=== PATIENT | female | born 1955 | race Caucasian/White ===

== ENCOUNTER 2018-04-06 16:06 | Outpatient (REF) | payer BC, SELFPAY ==
[2018-04-06 22:37] LABS: TSH (W/Ref FT4) 0.44 uIU/mL (0.358-3.74)
== END 2018-04-06 16:26 ==
LOC: NCHCN 16:06
PROVIDERS: Visit Provider Nurse Practitioner
DX: E04.1 Nontoxic single thyroid nodule (principal); E03.9 Hypothyroidism, unspecified
CPT/HCPCS: 84443

== ENCOUNTER 2018-06-15 17:33 | Outpatient (REF) | payer BC, SELFPAY ==
[2018-06-15 22:30] LABS: TSH (W/Ref FT4) 0.54 uIU/mL (0.358-3.74)
== END 2018-06-15 17:53 ==
LOC: NCHCN 17:33
PROVIDERS: Visit Provider Nurse Practitioner
DX: E04.1 Nontoxic single thyroid nodule (principal); E03.9 Hypothyroidism, unspecified
CPT/HCPCS: 84443

== ENCOUNTER 2018-08-13 09:03 | Outpatient (CLI) | payer BC, SELFPAY ==
[2018-08-13 10:00] LABS: Abs Immature Grans 0.01 k/cumm (0.0-0.09); Absolute Basophil Count 0.02 k/cumm (0.0-0.2); Absolute Eosinophil Count 0.21 k/cumm (0.0-0.7); Absolute Lymphocyte Count 1.11 k/cumm (1.2-3.4); Absolute Monocyte Count 0.36 k/cumm (0.11-0.7); Absolute Neutrophil Count 3.86 k/cumm (1.2-6.7); Basophils % 0.4; Eosinophils % 3.8; HCT 46.7 % (36.0-46.0); HGB 14.9 g/dL (12.0-15.5); Immature Grans % 0.2; Lymphocytes % 19.9; Mean Corp. HGB Concentration 31.9 g/dL (32.0-36.0); Mean Corpuscular Hemoglobin 29.7 pg (27.0-33.0); Monocytes % 6.5; Neutrophils % 69.2; Platelet Count 202 x1000/uL (130-400); RBC 5.02 m/cumm (4.00-5.20); RBC Distribution Width 14.3 % (11.7-14.6); White Blood Cell Count 5.57 k/cumm (4.4-10.8)
[2018-08-13 12:00] LABS: ALT 30 U/L (12-78); AST 17 U/L (15-37); Albumin 4.3 g/dL (3.4-5.0); Alkaline Phosphatase 113 U/L (46-116); Anion Gap 11.6 mmol/L (3-11); BUN 20 mg/dL (7-18); Bilirubin, Total 0.5 mg/dL (0.2-1.0); CO2 28.4 mmol/L (21.0-32.0); CREATININE 0.96 mg/dL (0.55-1.02); Calcium 9.6 mg/dL (8.5-10.1); Chloride 104 mmol/L (98-107); Cholesterol 262 mg/dL (50-200); Estimated GFR 59.09 (mL/min/1.73m2); Glucose 74 mg/dL (70-100); HDL Cholesterol 74 mg/dL (40-60); LDL CHOLESTEROL 174 mg/dL (<100); Magnesium 2.2 mg/dL (1.8-2.4); Potassium 4.3 mmol/L (3.5-5.1); Sodium 144 mmol/L (136-145); TSH (W/Ref FT4) 3.06 uIU/mL (0.358-3.74); Total Protein 7.9 g/dL (6.4-8.2); Triglyceride 84 mg/dL (30-150)
[2018-08-15 12:21] LABS: Hepatitis C Ab w Rflx HCV PCR Negative (NEGAT)
== END 2018-08-13 09:23 ==
PROVIDERS: Visit Provider Nurse Practitioner
DX: E03.9 Hypothyroidism, unspecified (principal); Z00.00 Encounter for general adult medical examination without abnormal findings; R00.2 Palpitations; Z11.59 Encounter for screening for other viral diseases
CPT/HCPCS: 36415; 80053; 80061; 83721; 86803; 83735; 84443; 85025

== ENCOUNTER 2018-12-13 14:48 | Outpatient (CLI) | payer OTHER, BC, SELFPAY ==
--- NOTE | 2018-12-13 16:41 | DI.RAD_ITS ---
SYMPTOMS/DIAGNOSIS: BACK PAIN, M54.9 LUMBAR SPINE: There are no prior comparison exams. There are metallic rods extending from the thoracic region into the lower lumbar region and additional metallic rods seen extending from the mid lumbar level through the sacrum. Hardware also extends through the SI joints. No bony fracture or hardware fracture is seen. IMPRESSION: No acute abnormality.
== END 2018-12-13 15:08 ==
PROVIDERS: Visit Provider Specialist/Technologist Athletic Trainer
DX: M54.5 Low back pain (principal)
CPT/HCPCS: 72110

== ENCOUNTER 2019-09-14 13:30 | Outpatient (CLI) | payer BC, SELFPAY ==
[2019-09-14 14:43] LABS: FREE T4 1.15 ng/dL (0.76-1.46); TSH 10.33 uIU/mL (0.36-3.74)
[2019-09-14 21:56] LABS: T3,Free 3.3 pg/mL (2.8-5.3)
== END 2019-09-14 13:50 ==
PROVIDERS: PCP Nurse Practitioner Family; Visit Provider Nurse Practitioner Family
DX: Z00.00 Encounter for general adult medical examination without abnormal findings (principal); E03.9 Hypothyroidism, unspecified; K59.00 Constipation, unspecified; K30 Functional dyspepsia
CPT/HCPCS: 36415; 84439; 84443; 84481

== ENCOUNTER 2019-10-10 00:18 | Outpatient (CLI) | payer BC, SELFPAY ==
--- NOTE | 2019-10-10 13:20 | DI.MAMMO_ITS ---
EXAM: MG MAMMO SCREENING CLINICAL HISTORY: SCREENING, Z12.31 TECHNIQUE: Bilateral full field digital CC and MLO mammographic images were obtained with 3D tomosyn thesis and utilizing computer aided detection (CAD). COMPARISON: Available for comparison. FINDINGS: Masses/Architectural Distortion: None seen. Microcalcifications: No suspicious pleomorphic-type are seen. Skin Thickening/Nipple Retraction: None. IMPRESSION: 1. No significant interval change with no specific features of malignancy noted. 2. Unless there is more urgent need, screening mammography is recommended, as per [employer] guidelines. BI-RADS Cat 1 - Negative Breast Density - Category B - Scattered areas of fibroglandular density A negative radiographic report should not delay biopsy if a dominant or clinically suspicious mass is present. Up to ten percent of cancers are not identified on mammography. A negative report may reinforce clinical impression. Adenosis and dense breasts may obscure an underlying neoplasm. False positive reports average 6 to 10%. Patient will receive a letter notifying them of these results.
== END 2019-10-10 00:38 ==
PROVIDERS: PCP Nurse Practitioner Family; Visit Provider Nurse Practitioner Family
DX: Z12.31 Encounter for screening mammogram for malignant neoplasm of breast (principal)
CPT/HCPCS: 77063; 77067

== ENCOUNTER 2019-10-25 13:49 | Outpatient (CLI) | payer BC, SELFPAY ==
[2019-10-25 15:12] LABS: FREE T4 1.14 ng/dL (0.76-1.46)
== END 2019-10-25 14:09 ==
PROVIDERS: PCP Nurse Practitioner Family; Visit Provider Nurse Practitioner Family
DX: M25.551 Pain in right hip (principal); M54.9 Dorsalgia, unspecified; K59.00 Constipation, unspecified; E03.9 Hypothyroidism, unspecified; G25.81 Restless legs syndrome; G43.909 Migraine, unspecified, not intractable, without status migrainosus
CPT/HCPCS: 36415; 84439; 84443; 84481

== ENCOUNTER 2019-10-25 13:56 | Outpatient (CLI) | payer BC, SELFPAY ==
--- NOTE | 2019-10-25 13:51 | DI.RAD_ITS ---
EXAM: XR HIP AND PELVIS ADULT BL CLINICAL HISTORY: BILAT HIP PAIN, M25.551. TECHNIQUE: 2D digital imaging was performed. COMPARISON: No exams were available for comparison FINDINGS: BONES: No acute fracture is present. No bony destructive lesion is seen. Spinal rods and screws are s een in the lumbosacral spine. JOINTS: No dislocation present. No arthritic changes are seen in the hips. The sacroiliac joints are intact. The symphysis pubis is unremarkable. SOFT TISSUE: Normal. IMPRESSION: Unremarkable radiographs of bilateral hips. Postsurgical changes in the lumbosacral spine. DATA REPOSITORY: RADIATION DOSE DELIVERED:
== END 2019-10-25 14:16 ==
PROVIDERS: PCP Nurse Practitioner Family; Visit Provider Nurse Practitioner
DX: M25.551 Pain in right hip (principal); M25.552 Pain in left hip
CPT/HCPCS: 73521

== ENCOUNTER 2020-07-10 10:12 | Outpatient (CLI) | payer BC, SELFPAY ==
--- NOTE | 2020-07-10 15:00 | DI.RAD_ITS ---
EXAM: XR SHOULDER RT COMPLETE 2+V CLINICAL HISTORY: right shoulder pain. TECHNIQUE: 2D digital imaging was performed. COMPARISON: CR LEFT SHOULDER COMPLETE from 05/18/2013 FINDINGS: No evidence of fracture or dislocation. No abnormal soft tissue calcifications. Subacromial space i s not diminish. No obvious degenerative changes in the glenohumeral joint. No os acromiale. Bone d ensity normal. No osseous lesions. IMPRESSION: No significant radiographic findings on these two views of the right shoulder. DATA REPOSITORY: RADIATION DOSE DELIVERED:
--- NOTE | 2020-07-10 15:30 | DI.RAD_ITS ---
EXAM: XR WRIST RT COMPLETE CLINICAL HISTORY: right wrist pain TECHNIQUE: COMPARISON: No exams were available for comparison FINDINGS: Three views were obtained. There is narrowing of the cartilaginous joint space at the radial navicul ar joint. Otherwise the joint spaces appear intact and carpal alignment is grossly within normal head its. There are mild subchondral sclerotic changes at the radial navicular joint consistent with dege nerative change. There is a question of slight offset of the alignment of the navicular and lunate a t the radiocarpal articulation, question ligamentous injury at navicular lunate joint. If clinically indicated, additional evaluation with MR may be considered. IMPRESSION: RADIATION DOSE DELIVERED: Total DLP
== END 2020-07-10 10:32 ==
PROVIDERS: PCP Nurse Practitioner Family; Visit Provider Student in an Organized Health Care Education/Training Program
DX: M25.531 Pain in right wrist (principal); M25.511 Pain in right shoulder
CPT/HCPCS: 73030; 73110

== ENCOUNTER 2020-08-15 01:16 | Outpatient (CLI) | payer OTHER, BC, SELFPAY ==
--- NOTE | 2020-08-15 06:45 | DI.MRI_ITS ---
CLINICAL HISTORY: Failed cons; persistent pain mechanical symptOMS,SLAP LESION,BURSITIS,. TECHNIQUE: Multiplanar multisequence MRI was performed. COMPARISON: None FINDINGS: MR examination of the shoulder was performed according to the usual protocol. There is no significant effusion of the glenohumeral joint. Minimal fluid in the subacromial subdelt oid bursa. Bones and labrum: No significant bony signal abnormality seen apart from mild degenerative signal abn ormalities at the acromioclavicular joint associated with mild AC joint hypertrophy. Small inferior osteophyte of humeral head.. There is abnormal signal in the glenoid labrum anteriorly, superiorly, and posteriorly, consistent with a SLAP tear as clinically suspected. There is mildly abnormal signa l at the biceps attachment on the labrum. There is a longitudinal split of the biceps tendon noted i n the bicipital groove with mildly increased fluid in the bicipital groove.. Rotator cuff: Mildly abnormal signal noted in the supraspinatus tendon without evidence of discrete tear, consistent with tendinosis. Mildly abnormal signal seen in distal portion of subscapularis ten don, also consistent with tendinosis without evidence of a tear. Rotator interval structures are unremarkable with no evidence of a tear. Biceps tendon and anchor: See above, mildly abnormal signal in biceps anchor and longitudinal split b iceps tendon noted. IMPRESSION: Findings suggesting SLAP tear of the labrum. Longitudinal split of biceps tendon, no retraction seen. Mild rotator cuff tendinosis as described above. Mild degenerative changes of the acromioclavicular joint. DATA REPOSITORY:
== END 2020-08-15 01:36 ==
PROVIDERS: PCP Nurse Practitioner Family; Visit Provider Student in an Organized Health Care Education/Training Program
DX: M77.8 Other enthesopathies, not elsewhere classified (principal); M19.011 Primary osteoarthritis, right shoulder
CPT/HCPCS: 73221

== ENCOUNTER 2020-09-17 02:57 | Outpatient (CLI) | payer BC, SELFPAY ==
[2020-09-18 13:27] LABS: COVID-19 RT-PCR UVMMC Result Negative (Negative)
== END 2020-09-17 02:58 | disposition home or self-care (01) ==
LOC: LBO 02:57
PROVIDERS: PCP Nurse Practitioner Family; Visit Provider Student in an Organized Health Care Education/Training Program
DX: Z20.822 Contact with and (suspected) exposure to COVID-19 (principal); Z01.818 Encounter for other preprocedural examination
CPT/HCPCS: U0003

== ENCOUNTER 2020-09-24 13:06 | Outpatient (REF) | payer BC, SELFPAY ==
[2020-09-24 13:56] LABS: Calculated LDL 175 mg/dL (<100); Cholesterol 265 mg/dL (<200); HDL Cholesterol 62 mg/dL (40-60); TSH (W/Ref FT4) 1.26 uIU/mL (0.36-3.74); Triglyceride 143 mg/dL (<150)
== END 2020-09-24 13:07 | disposition home or self-care (01) ==
LOC: NCHCN 13:06
PROVIDERS: PCP Nurse Practitioner Family; Visit Provider Nurse Practitioner Family
DX: E03.9 Hypothyroidism, unspecified (principal)
CPT/HCPCS: 80061; 84443

== ENCOUNTER 2020-10-11 07:12 | Day surgery (SDC) | payer OTHER, SELFPAY ==
[2020-10-11] VITALS (7 sets, daily range): BP systolic 99–126; BP diastolic 57–79; PULSE 56–65; RESP 16–21; TEMP 36.1–36.6; O2SAT 95–99
[2020-10-11] MEDS: Lactated Ringers 1,000 ML 100 ML IV (08:12)
[2020-10-11] MEDS: ceFAZolin 2 GM/50 ML BAG IVPB (09:48)
[2020-10-11] MEDS: EPINEPHrine 30 MG/30 ML VIAL (10:59)
--- NOTE | 2020-10-11 12:06 | PDOC.DSDIS_ITS ---
Discharge Plan Disposition Patient Disposition: HOME Condition: Stable Discharge Details Reason For Visit: Right shoulder surgery Attending Provider: Jose Hernandez Primary Care Provider: Preeti Kidd Home Meds and New Rx's Prescriptions: New naproxen 250 mg tablet 250 - 500 mg PO BID PRN (Reason: Moderate pain or swelling) Qty: 60 RF: 0 aspirin 81 mg tablet,delayed release (DR/EC) 81 mg PO DAILY 14 Days Qty: 14 RF: 0 ondansetron 4 mg tablet,disintegrating 4 mg PO Q6H PRN (Reason: nausea or vomiting) Qty: 5 RF: 0 oxycodone 5 mg tablet 5 - 10 mg PO Q4H PRN (Reason: moderate to severe pain) Qty: 16 RF: 0 Continued levothyroxine 112 mcg capsule 112 mcg PO .QOD RF: 0 omega-3 fatty acids [Fish Oil Concentrate] 1,000 mg capsule 1,000 mg PO DAILY RF: 0 riboflavin (vitamin B2) 100 mg tablet 100 mg PO DAILY RF: 0 multivitamin Tablet 1 tab PO DAILY RF: 0 magnesium oxide 250 mg magnesium tablet 500 mg PO DAILY RF: 0 propranolol 10 mg tablet 10 mg PO BID Qty: 180 RF: 5 ketorolac 10 mg tablet 10 mg PO BID PRN (Reason: headache) Qty: 14 RF: 3 hydroxyzine HCl 25 mg tablet 25 mg PO QID PRN (Reason: headache ) Qty: 30 RF: 3 duloxetine [Cymbalta] 20 mg capsule,delayed release(DR/EC) 30 mg PO DAILY RF: 0 docusate sodium 100 mg Capsule PO RF: 0 Discharge Instructions Additional Instructions: Surgery: Shoulder arthroscopy with extensive debridement, biceps tenodesis, distal clavicle excision, and subacromial decompression. Activity: You should gradually increase range of motion motion and use of your shoulder. Please perform daily stretching exercises. You may use your shoulder for all regular activities. Avoid heavy lifting, reaching overhead, and lifting away from body for approximately 6 to 8 weeks. You may use the sling whenever you are out of the house for a few weeks. At home it is best to remove the sling and rest the arm on a pillow at your side or support the operative side with your other hand. A physical therapy prescription will be sent electronically to begin in 2-3 weeks. Prescriptions: Aspirin 81 mg take 1 daily to prevent a blood clot for 2 weeks Naproxen 250 mg take 1-2 every 12 hours with a meal as needed for moderate pain Oxycodone 5 mg take 1-2 every 4-6 hours as needed for severe pain You may use [id number] Tylenol (acetaminophen) as needed for mild pain. These pain medications may be taken all at once or in different combinations as needed. Ondansetron (Zofran) 4 mg take 1 orally dissolving tablet every 6 hours as needed for nausea or vomiting Also, recommend Colace (docusate) as a stool softener as surgery and pain medicine cause constipation. Dressings: Remove shoulder bandage after 3 days. Leave the sticky Steri-Strips in place until they fall off or remove them after you shower. Cover the incisions with Band-Aids or leave them open to air. The biceps bandage (inside upper arm) is glued on separately. You may leave this one on a few days longer if it is difficult to remove. There is also glue underneath this bandage that can be left in place until it peels off. You may shower after 5 days. Follow-up: 10-[address] Hernandez (10/23/20 at 8:15 AM) You may take off the leg compression stockings this evening at home. You may also leave them on a few days longer if you have a history of leg swelling or edema. Let us know right away if you develop any redness, drainage, fevers, chest pain, or trouble breathing. Do not drink alcohol or drive for at least 24 hours after anesthesia. Please call the office during business hours with any questions or concerns. Referrals: Jose Hernandez MD [ [facility] STAFF PHYSICIAN] - Discharge Orders Discharge Orders: Discharge Order (Routine); Ordered 10/11/20 Ordered By: Jose Hernandez DS: Diagnosis Discharge Diagnosis (1) Arthritis of right acromioclavicular joint: Status: Acute (2) Bursitis of right shoulder: Status: Acute (3) Tendinitis of long head of biceps brachii of right shoulder: Status: Acute (4) SLAP lesion of right shoulder: Status: Acute (5) Impingement syndrome of right shoulder: Status: Acute
--- NOTE | 2020-10-11 12:34 | ROE_ITS ---
Date of service: 10/11/20 Time of Service: 10:30 Operative Note Operative Note DATE OF PROCEDURE: 10/11/20 PRE-OP DIAGNOSIS: Right: 1. SLAP tear 2. LHB tendinopathy 3. Bursitis 4. Impingement 5. AC joint arthritis POST-OP DIAGNOSIS: same PROCEDURE: Right: 1. Arthroscopic distal clavicle excision, CPT# 58683. This involved arthroscopically exposing the underside of the acromioclavicular joint, smoothing out bone spurs, and using a aga to remove approximately 5 mm of the distal clavicle so there was no bone left engaging the acromion. 2. Open biceps tenodesis, CPT# 85220. This involved reattaching the long head of the biceps tendon to the proximal humerus in the sub-pectoral area of the bicipital groove at the correct tension. 3. Extensive debridement, CPT# 59905. This involved using arthroscopic hand instruments, power instruments, and radiofrequency instruments to release to release the long head of the biceps tendon and debride areas of labral tearing, SLAP tear, discoid type labrum, synovitis, and chondromalacia a anterior inferior glenoid labral chondral injury, and humeral head posteriorly working within the glenohumeral joint anteriorly, superiorly and posteriorly. 4. Subacromial decompression with partial acromioplasty, CPT# 90798. This involved using arthroscopic power instruments and a radiofrequency wand to complete a bursectomy and remove bone spurs on the undersurface of the acromion. The assistant professor of business was medically required in order to help assist in techniques above, which require positioning the arm, holding the arthroscope, and manipulating multiple instruments and sutures at the same time. This cannot be done without the help of an experienced assistant professor of business. SURGEON: Jose Hernandez PAPER FEEDER: Andie Knight ANESTHESIA TYPE: Local By Surgeon, General LMA/ETT and Primary Nerve Block Refer to Anesthesia Record ESTIMATED BLOOD LOSS: 10 PATHOLOGY: none sent COMPLICATIONS: None Patient was transported to: PACU Patient's condition: stable Implants: Arthrex: FiberTak 2.6 mm all-suture Button Implant Indications: The patient was diagnosed with the above conditions and appropriately indicated for surgical intervention. Please see complete medical record for details. Findings: Exam under anesthesia: Full, symmetrical range of motion without instability. Crepitation at glenohumeral joint with circumduction. Glenohumeral joint: Significant displaced bucket-handle likely discoid type SLAP tear with extension into the posterior labrum. Intact subscapularis. Intact articular sided supraspinatus infraspinatus. Anterior inferior labral tear and adjacent chondromalacia somewhat chronic appearing with cartilage and small amount of bone loss anterior inferior glenoid. Anterior about bicipital groove and posterior humeral head cartilage softening and thinning. Subacromial space: Moderate bursitis. Moderate impinging undersurface distal clavicle acromion. Mild undersurface acromial bone spur. Intact bursal rotator cuff. Procedure Description: In the operating room, general anesthesia was induced. Bilateral shoulders were examined. The patient was positioned in the beachchair position. All bony prominences were well-padded. Preoperative antibiotics were administered. The shoulder was prepped and draped in the usual sterile fashion. The correct patient, procedure, and side of the procedure were all verified prior to incision. Starting through the posterior portal a standard complete diagnostic arthroscopy was performed of the glenohumeral joint including inspection of the long head of the biceps, anterior and superior labrum, subscapularis tendon, supraspinatus and infraspinatus tendons, and axillary recess. The glenoid and humeral head cartilage as well as the posterior labrum were inspected from an anterior viewing portal. Significant findings and interventions noted above. The biceps tendon was released from the superior labrum using arthroscopic scissors. Starting through the posterior portal, the arthroscope was directed into the subacromial space. A lateral 50 yard line lateral portal was created. A combination of power instruments and a radiofrequency ablator were used to debride bursitis anteriorly, posteriorly, and laterally as well as expose and smooth bone spurring on the undersurface of the acromion. The coracoacromial ligament was only partially released. The bursectomy was completed viewing laterally and working from posteriorly and the rotator cuff was thoroughly inspected with findings noted above. The anterior portal was redirected towards the undersurface of the AC joint. A shaver and electrocautery device were used to clear soft tissue from the undersurface of the AC joint. A aga was then inserted and used to remove the distalmost 5 mm of the distal clavicle. Care was taken to alternate between working through the anterior portal and viewing through the anterior portal to ensure that proper amount of bone was removed and there was no engaging bone left behind especially superiorly. 20 cc of 1% epinephrine with epinephrine was infiltrated about a 3 cm longitudinal incision at the inferior margin of the pectoralis major localized over the long head of the biceps tendon. Blunt and sharp dissection were used to expose the tendon in the bicipital groove. The tendon was brought out of the wound and kept off the skin on top of a blue towel. Using a fiber loop suture the tendon was prepped from the musculotendinous junction a few centimeters proximal. The excess tendon was amputated. The correct location for sub- pectoral fixation was localized, prepped with a rasp, and then drilled with a 2.6 mm drill pin in a unicortical fashion through the guide. The FiberTak button implant was inserted through the guide, deployed, and tested. The free FiberLoop suture ends were then passed through the implant using the preloaded FiberLoop shuttling sutures. The sutures were tensioned bringing the tendon down to bone. Tension and fixation were then tested and found to be appropriate. The free ends of the suture were were brought on either side of the tendon and then tied compressing tendon to bone. The wound was copiously irrigated with normal saline. Subcutaneous tissue was closed using 3-0 Monocryl in a buried interrupted fashion. Skin was closed using 3-0 Monocryl in a buried subcuticular running fashion. Skin glue was applied over the incision. Mastisol was applied about the incision. The incision was covered with Telfa, gauze, and covered with a Tegaderm dressing. The shoulder was drained of arthroscopic fluid. All portal sites were copiously irrigated. These incisions were closed using 3-0 Monocryl in a buried fashion, covered with Mastisol, Steri-Strips, Xeroform, dry gauze, and ABDs. The dress ings were covered and secured with Medipore tape. The operative extremity was placed into a sling for immobilization. The patient awoke from anesthesia without complication and was transferred to the recovery room in a stable condition.
== END 2020-10-11 14:01 | disposition home or self-care (01) ==
PROVIDERS: PCP Nurse Practitioner Family; Visit Provider Student in an Organized Health Care Education/Training Program
PROC: (CPT 29805; principal; 2020-10-11 09:30)
DX: M19.011 Primary osteoarthritis, right shoulder (principal); M75.51 Bursitis of right shoulder; M75.21 Bicipital tendinitis, right shoulder; M75.41 Impingement syndrome of right shoulder; S43.431A Superior glenoid labrum lesion of right shoulder, initial encounter; E03.9 Hypothyroidism, unspecified; K21.9 Gastro-esophageal reflux disease without esophagitis
CPT/HCPCS: 23430; 29824; 29823; 29826; 76942; J0690; J1100; J1885; J2001; J2250; J2370; J2405

== ENCOUNTER 2021-02-25 13:00 | Outpatient (REF) | payer BC, SELFPAY ==
--- NOTE | 2021-02-25 12:00 | PAPFT_PTH ---
PATIENT: Camelia Vazquez LOC: [facility]#:[id number] AGE/SX: 65/F ROOM: RE02/25/[address]: Preeti Kidd : 1955 BED: DIS: 02/25/2021 SPEC #: [id number] RECD: 02/26/21 12:55 STATUS: DAWNA REDang #: [id number] QUAN: 02/25/21 12:[address]: Preeti Kidd DEPT: [facility] Cytology RECD BY: Camelia Zhu Tissues: 1 - CX/ENDOCX FOR PAP SMEARS Procedures: PAP THIN PREP/UVM Screening HPV DNA PROBE Comments: [id number]
== END 2021-02-25 13:01 | disposition home or self-care (01) ==
LOC: NCHCN 13:00
PROVIDERS: PCP Nurse Practitioner Family; Visit Provider Nurse Practitioner Family
DX: Z00.00 Encounter for general adult medical examination without abnormal findings (principal); Z12.4 Encounter for screening for malignant neoplasm of cervix; Z01.419 Encounter for gynecological examination (general) (routine) without abnormal findings; Z11.51 Encounter for screening for human papillomavirus (HPV)
CPT/HCPCS: 88142; 87624

== ENCOUNTER 2021-03-19 14:33 | Outpatient (CLI) | payer BC, SELFPAY ==
--- NOTE | 2021-03-19 11:00 | DI.RAD_ITS ---
Exam(s) XR ANKLE RT COMPLETE EXAM: XR ANKLE RT COMPLETE CLINICAL HISTORY: acute injury. TECHNIQUE: 2D digital imaging was performed. COMPARISON: No exams were available for comparison FINDINGS: There is soft tissue swelling laterally but no evidence of fracture nor widening of the mortise. Lawrence ar dome appears unremarkable. No osseous tarsal coalition evident. IMPRESSION: Soft tissue swelling. No obvious fracture. DATA REPOSITORY: RADIATION DOSE DELIVERED:
== END 2021-03-19 14:34 | disposition home or self-care (01) ==
LOC: DIORS 14:33
PROVIDERS: PCP Nurse Practitioner Family; Visit Provider Physician Assistant Surgical
DX: S93.401A Sprain of unspecified ligament of right ankle, initial encounter (principal); X50.1XXA Overexertion from prolonged static or awkward postures, initial encounter; Y99.8 Other external cause status
CPT/HCPCS: 73610

== ENCOUNTER 2021-09-08 12:58 | Outpatient (REF) | payer BC, SELFPAY ==
[2021-09-08 16:32] LABS: TSH (W/Ref FT4) 0.99 uIU/mL (0.36-3.74)
== END 2021-09-08 12:59 | disposition home or self-care (01) ==
LOC: NCHCN 12:58
PROVIDERS: PCP Nurse Practitioner Family; Visit Provider Nurse Practitioner Family
DX: Z01.818 Encounter for other preprocedural examination (principal)
CPT/HCPCS: 84443

== ENCOUNTER 2021-11-05 00:56 | Outpatient (CLI) | payer BC, SELFPAY ==
--- NOTE | 2021-11-05 07:55 | DI.MAMMO_ITS ---
Exam(s) MAMMO SCREENING EXAM: MAMMO SCREENING CLINICAL HISTORY: SCREENING, Z12.31. TECHNIQUE: Bilateral full field digital CC and MLO mammographic images were obtained with 3D tomosyn thesis and utilizing computer aided detection (CAD). COMPARISON: Prior mammograms were reviewed, the most recent being October 2019. FINDINGS: There has been no significant change in the appearance and distribution of the fibroglandular tissue. There are no new spiculated masses nor malignant appearing microcalcification groups. There is no significant architectural distortion nor skin thickening-retraction. IMPRESSION: No radiographic evidence of malignancy. Category: Density: Breast density Category C or D implies that the patient has dense breast tissue. Dense breast tissue can make it harder to find cancer on a mammogram. Dense breast tissue is also associated with an incr eased risk of breast cancer. This information about the result of the mammogram report was provided to the patient to raise their awareness. Use this report when you speak with the patient about their risks for breast cancer, which includes their family history. At that time, you may recommend additional screening tests (Ultrasoun d or MRI) as these tests may add significant information. A negative radiographic report should not delay biopsy if a dominant or clinically suspicious mass is present. Up to ten percent of cancers are not identified on mammography. A negative report may reinforce clinical impression. Adenosis and dense breasts may obscure an underlying neoplasm. False positive reports average 6 to 10%. Patient will receive a letter notifying them of these results.
== END 2021-11-05 01:16 ==
PROVIDERS: PCP Nurse Practitioner Family; Visit Provider Nurse Practitioner Family
DX: Z12.31 Encounter for screening mammogram for malignant neoplasm of breast (principal)
CPT/HCPCS: 77063; 77067

== ENCOUNTER 2022-02-05 19:58 | Outpatient (REF) | payer BC, SELFPAY | END 2022-02-05 19:59 | disposition home or self-care (01) | LOC: NCHCN 19:58 | PROVIDERS: PCP Nurse Practitioner Family; Visit Provider Family Medicine ==

== ENCOUNTER 2022-02-10 12:32 | Outpatient (CLI) | payer BC, SELFPAY ==
[2022-02-10 13:01] LABS: HCT 43.3 % (36.0-46.0); MCHC 32.3 % (32.0-36.0); MCV 96 fL (80-95); MPV 10.3 fL (8.0-11.0); Platelet Count 227 10^3/uL (130-400); RBC 4.51 10^6/uL (3.93-5.22); RDW 13.5 % (11.7-14.6); RDW-SD 48.3 fL; WBC 5.88 10^3/uL (4.4-10.8)
[2022-02-10 14:21] LABS: ALT 28 U/L (14-59); AST 19 U/L (15-37); Albumin 4.1 g/dL (3.4-5.0); Alkaline Phosphatase 98 U/L (46-116); BUN 21 mg/dL (7-18); Bilirubin, Total 0.3 mg/dL (0.2-1.0); CREATININE 0.9 mg/dL (0.55-1.02); Calcium 8.9 mg/dL (8.5-10.1); Chloride 103 mmol/L (98-107); Glucose 94 mg/dL (74-106); Magnesium 2.3 mg/dL (1.8-2.4); Potassium 4.1 mmol/L (3.5-5.1); Sodium 143 mmol/L (136-145); Total Protein 7.7 g/dL (6.4-8.2); Vitamin B12 1147 pg/mL (193-986)
[2022-02-11 22:44] LABS: Folate 13.8 ng/mL (See Note)
[2022-02-12 05:22] LABS: Vitamin D 25 Total 22.6 ng/mL (30-100)
[2022-02-16 13:46] LABS: IgA 192 mg/dL (85-499); Interpretation (See Note); Tissue Transglutaminase IgA <1.2 U/mL (<4.0)
== END 2022-02-10 12:33 | disposition home or self-care (01) ==
LOC: LBO 12:33
PROVIDERS: PCP Nurse Practitioner Family; Visit Provider Family Medicine
DX: K30 Functional dyspepsia (principal); G43.909 Migraine, unspecified, not intractable, without status migrainosus; K59.09 Other constipation; E66.9 Obesity, unspecified
CPT/HCPCS: 36415; 80053; 82306; 82784; 83516; 85027; 82607; 82746; 83735

== ENCOUNTER 2022-06-02 14:57 | Outpatient (REF) | payer BC, SELFPAY ==
[2022-06-02 16:09] LABS: TSH 1.33 uIU/mL (0.36-3.74)
== END 2022-06-02 14:58 | disposition home or self-care (01) ==
LOC: NCHCN 14:57
PROVIDERS: PCP Nurse Practitioner Family; Visit Provider Nurse Practitioner Family
DX: E03.9 Hypothyroidism, unspecified (principal)
CPT/HCPCS: 84443

== ENCOUNTER 2022-07-03 02:45 | Outpatient (CLI) | payer MEDICARE, SELFPAY ==
[2022-07-06 10:08] LABS: Lyme Ab w Rflx to Lyme Confirm Negative (Negative)
[2022-07-06 20:11] LABS: Anaplasma phagocytophilum Negative (Negative); B. miyamotoi PCR Negative (Negative); Babesia divergens/MO-1 Negative (Negative); Babesia duncani Negative (Negative); Babesia microti Negative (Negative); Ehrlichia chaffeensis Negative (Negative); Ehrlichia ewingii/canis Negative (Negative); Ehrlichia muris eauclairensis Negative (Negative)
== END 2022-07-03 02:46 | disposition home or self-care (01) ==
PROVIDERS: PCP Nurse Practitioner Family; Visit Provider Psychiatry & Neurology Neurology
DX: R51.9 Headache, unspecified (principal); G89.29 Other chronic pain
CPT/HCPCS: 36415; 87798; 86618

== ENCOUNTER 2022-07-13 08:15 | Day surgery (SDC) | payer MEDICARE, SELFPAY ==
[2022-07-13] VITALS (9 sets, daily range): BP systolic 102–148; BP diastolic 60–88; PULSE 54–71; RESP 12–18; TEMP 36.1–36.7; O2SAT 18–100; BMI 32.0
--- NOTE | 2022-07-13 07:08 | W.ANESPRE ---
General Info Date of Service Date Performed: 07/13/22 Height: 5 ft 5 in Weight: 87.2 kg Body Mass Index (BMI): 32.0 Surgical Procedure: Operation Date: 07/13/22 09:35 Proposed Procedure Side Surgeon p Maximus Sellers MD Meds Allergies and Home Medications Allergies Allergy/AdvReac Type Severity Reaction Status Date / Time amitriptyline Allergy Mild Unknown Verified 07/13/22 08:28 Sulfa (Sulfonamide AdvReac Intermediate blood Verified 07/13/22 08:28 Antibiotics) pressure, oxygen levels down gabapentin AdvReac Mild constipatio Verified 07/13/22 08:28 n Home Medication Medication Instructions Recorded docusate sodium 100 mg capsule PO PRN 04/16/21 hydroxyzine HCl 25 mg tablet 25 mg PO QID PRN headache #30 tabs 09/17/21 mecobalamin (vitamin B12) 1,000 1,000 mcg PO DAILY 09/17/21 mcg chewable tablet trazodone 50 mg tablet 50 mg PO QHS PRN 09/17/21 galcanezumab-gnlm 120 mg/mL 120 mg subcut ONCE #1 mL 12/30/21 subcutaneous pen injector (Emgality Pen) propranolol 40 mg tablet 40 mg PO BID #180 tabs 02/03/22 B.coagulans 2 billion 1 cap PO DAILY 03/17/22 cell-digestive enzymes combo no.10 capsule (Digestive Advantage Probiotics Plus Gas) ascorbate calcium (vitamin C) 500 500 mg PO DAILY PRN 03/17/22 mg tablet coenzyme Q10 75 mg capsule (Ultra 200 mg PO DAILY 03/17/22 CoQ10) duloxetine 20 mg capsule,delayed 20 mg PO DAILY 03/17/22 release magnesium oxide 400 mg PO BID 03/17/22 melatonin 3 mg capsule 3 mg PO HS 03/17/22 omega-3 fatty acids 1,000 mg 2,000 mg PO DAILY 03/17/22 capsule (Fish Oil Concentrate) riboflavin (vitamin B2) 100 mg 200 mg PO DAILY 03/17/22 tablet tumeric 100 mg-darcie 150 mg-olive cap PO BID 03/17/22 50 mg-oreg 150 mg-caprylate capsule ashwagandha root extract 500 mg 500 mg PO DAILY 03/18/22 capsule cholecalciferol (vitamin D3) 125 125 mcg PO DAILY 06/02/22 mcg (5,000 unit) capsule levothyroxine 125 mcg tablet 125 mcg PO DAILY 06/02/22 colchicine 0.6 mg capsule 0.6 mg PO DAILY PRN 06/16/22 ketorolac 10 mg tablet 10 mg PO BID PRN headache #14 tabs 06/16/22 rimegepant 75 mg disintegrating 75 mg PO Q OTHER DAY migraine 06/16/22 tablet (Nurtec ODT) headache #15 tabs bisacodyl 5 mg tablet,delayed 5 mg PO ONCE #4 tabs 07/02/22 release (Dulcolax (bisacodyl)) polyethylene glycol 3350 17 17 g PO ONCE #238 grams 07/02/22 gram/dose oral powder Current Visit Medications: Current Medications Generic Name Dose Route Start Last Admin Trade Name Freq PRN Reason Stop Dose Admin Ringer's Solution 1,000 mls @ 80 mls/hr 07/13/22 06:00 IV 07/13/22 23:59 INFUSION JARVIS IV Miscellaneous Supplies 1 each 07/13/22 06:00 Iv Access IV 07/13/22 23:59 DIRECTED JARVIS Sodium Chloride 0 ml 07/13/22 06:00 Normal Saline Flush 10 Ml Syr IV 07/13/22 23:59 PRN PRN Sodium Chloride 0 ml 07/13/22 06:00 Normal Saline 10 Ml Vial IJ 07/13/22 23:59 DIRECTED PRN Sterile Water 0 ml 07/13/22 06:00 Water,Injection,Sterile 10 Ml Vial IJ 07/13/22 23:59 DIRECTED PRN PFSH Active Problems Active Problems: Problem Status Onset Code Chronic pain syndrome G89.4 Persistent headaches R51.9 Screening for colon cancer Z12.11 Sensorineural hearing loss (SNHL) of both ears H90.3 Chronic daily headache R51.9 Caregiver burden Z63.6 Medical History Medical History Arthritis of right acromioclavicular joint Back pain Bursitis of right shoulder Constipation Hypothyroidism Iliotibial band syndrome of left side Impingement syndrome of right shoulder Migraine aura, persistent, intractable Migraine headache without aura Radioscaphoid impaction syndrome of right wrist Right ankle sprain (03/19/21) Scoliosis SLAP lesion of right shoulder Stress incontinence Tendinitis of long head of biceps brachii of right shoulder Thyroid nodule Trochanteric bursitis of left hip Tubular adenoma of colon (02/09/17) Surgical History Surgical History Arthroplasty of knee left this is NOT a TKA per patient back surgery Rods from T4-S1 for scoliosis bunionectomy Rt. Foot Colonoscopy - MAC (02/09/17) excision ganglion cyst H/O partial thyroidectomy H/O shoulder surgery History of surgery SLAP right wrist History of surgery on wrist [place] [facility] [place] Spinal Fusion LS wisdom teeth extraction Tobacco Smoking/Tobacco Use Status: Never Alcohol Alcohol Intake: never Substance Use Substance use: Never Substance use type: does not use Vital Signs and Lab Results Lab Results Blood Type / Crossmatch: No Data to Display Complete Blood Count: No Data to Display Complete Metabolic Panel: No Data to Display Liver Function Panel: No Data to Display Coagulation Panel: No Data to Display Cardiac Panel: No Data to Display Arterial Blood Gas: No Data to Display Venous Blood Gas: No Data to Display Pancreas Panel: No Data to Display Thyroid Panel: No Data to Display Infectious Disease: No Data to Display Blood Cultures: No Data to Display Toxicology Panel: No Data to Display Anesthesia Assessment and Plan Anesthesia History Personal History: No History of Anesthesia Complications Family History: No Family History of Anesthesia Complications Exercise Tolerance Exercise Tolerance: Metabolic Equivalents>4 Pertinent Negatives Pertinent Negatives: No Symptoms of GERD, No Major Cardiovascular Symptoms or Complaints, No Major Pulmonary Symptoms or Complaints and No History of CVA/TIA Cardiac & Pulmonary Exam Cardiac Exam: Normal S1/S2 Heart Sounds Pulmonary Exam: Clear Bilateral Breath Sounds Implantable Cardiac Device Does patient have a Pacemaker or an ICD?: No Airway Exam Known Difficult Airway: No Mallampati Class: 2 Mouth Opening: Normal (> 3cm) Thyromental Distance: Greater than 3 cm Neck Range of Motion: Full ROM Neck Circumference: Normal Teeth Condition: Normal Dentition ASA Classification ASA Score: ASA 3 Emergency Case?: No NPO Status NPO Status: NPO Clears >2 hours, Solids >8 hours Anesthesia Plan Resuscitation Status: Full Code Anesthesia Technique: General Anesthesia Airway Planned: Natural Airway Monitors Used: Standard Monitors
[2022-07-13] MEDS: Lactated Ringers 1,000 ML 80 ML IV (09:22)
--- NOTE | 2022-07-13 09:40 | BOWEL_PTH ---
PATIENT: Camelia Vazquez LOC: [facility] U#:[id number] AGE/SX: 66/F ROOM: RE07/13/[address]: Ash Sellers : 1955 BED: DIS: 07/13/2022 SPEC #: [id number] RECD: 07/13/22 12:26 STATUS: DAWNA RE #: [id number] QUAN: 07/13/22 09:[address]: Ash Sellers DEPT: Surgical Specimen RECD BY: Camelia Zhu ENTERED: 07/13/22 12:26 SP TYPE: Bowel OTHR DR: Preeti Kidd Tissues: 1 - BIOPSY BOWEL Procedures: GROSS AND MICRO LEVEL 4 Comments: [id number]
--- NOTE | 2022-07-13 09:55 | W.PM.ENDDOP ---
Date of service: 07/13/22 Time of Service: 09:55 Endoscopy Report PROCEDURE DESCRIPTION: Procedures performed: 1. Colonoscopy with snare polypectomy x1 Preoperative diagnosis: Surveillance colonoscopy Postoperative diagnosis: Colon polyps, mild sigmoid diverticulosis, mild grade 1 internal hemorrhoids Surgeon: Rolf Sellers Anesthesia: Luis Indication for procedure: Patient is a 66-year-old woman with personal history of adenomatous polyps, her grandmother had colon cancer, she is not having any symptoms. Last colonoscopy 5-6 years ago. Findings: A 3 to 5 mm sessile polyp was removed from the cecum with cold snare technique. Minimal/mild diverticular changes only in the sigmoid colon. Mild grade 1 internal hemorrhoids were noted on retroflexion. Surveillance/follow-up recommendations: Because of the personal, family histories and finding a right?sided adenomatous polyp today I recommend repeating in 3-5 years depending on histology. If adenomatous in 5 years, if villous or sessile serrated histology then 3 years. Complications: None Blood loss: Minimal Procedure in detail: Written consent was obtained from the patient who was in agreement with the risks, benefits and indications of the procedure. We went to the endoscopy suite and laid the patient in left lateral decubitus position. Anesthesia was administered which was tolerated well. A timeout was performed and when we are all in agreement we began the procedure. Digital rectal exam and visual examination was performed and within normal limits. A well?lubricated colonoscope was advanced without difficulty all the way to the cecum identified by the ileocecal valve, and triangular folds and appendiceal orifice. It was then slowly withdrawn. Retroflexion was performed in the rectum. The findings/interventions are noted above. The scope was then removed and the patient tolerated the procedure well and was then taken back to the PACU in hemodynamically stable condition.
[2022-07-13] MEDS: Ketorolac 15 MG/ML VIAL IVP (10:23)
--- NOTE | 2022-07-13 10:43 | ANES.POST_ITS ---
Postoperative Evaluation Date, Time and Location Date Performed: 07/13/22 Time Performed: 10:24 Patient Location: PACU Vital Signs Most Recent Imported Vital Signs: Most Recent Vital Signs Temp Pulse Resp BP Pulse Ox 36.6 C 54 L 15 122/61 98 07/13/22 10:35 07/13/22 10:35 07/13/22 10:35 07/13/22 10:35 07/13/22 10:35 Pain Score Most Recent Pain Score: Most Recent Pain Score Pain Level 4 07/13/22 10:35 Assessment Mental Status: Awake (Alert & Oriented to Patient Baseline) Airway and Respiratory Function: Patent airway with normal (patient baseline) respiratory exam Cardiovascular Function: Hemodynamically Stable Hydration Status: Adequately Hydrated Nausea & Vomiting: No Nausea or Vomiting Pain: Pain is tolerable per patient Peripheral Nerve Block: Patient did not receive a nerve block Teaching Patient Teaching: Advised to seek followup for the following concerns (See exp lanation) Concerns: Other (Possible Aspiration event during case. Sent home with aspiration pneumonia discharge instructions. All questions answered.) Postoperative Comments:: patient left eye irritated. i ordered and administered two drops of adtificial tears. patient states uses at home and is comfortable in the medication and its usage
== END 2022-07-13 11:33 | disposition home or self-care (01) ==
PROVIDERS: PCP Nurse Practitioner Family; Visit Provider Student in an Organized Health Care Education/Training Program
PROC: 0DJD8ZZ Inspection of Lower Intestinal Tract, Via Natural or Artificial Opening Endoscopic (ICD-10-PCS; CPT 45378; principal; 2022-07-13 09:30)
DX: Z12.11 Encounter for screening for malignant neoplasm of colon (principal); K63.5 Polyp of colon; K57.30 Diverticulosis of large intestine without perforation or abscess without bleeding; K64.0 First degree hemorrhoids; Z86.010 Personal history of colon polyps
CPT/HCPCS: 45385; 88305; J1885

== ENCOUNTER 2022-08-25 08:59 | Outpatient (CLI) | payer MEDICARE, SELFPAY ==
--- NOTE | 2022-08-25 | DI.RAD_ITS ---
Exam(s) XR ELBOW LT COMPLETE EXAM: XR ELBOW LT COMPLETE CLINICAL HISTORY: LEFT LATERAL EPICONDYLITIS M77.12. TECHNIQUE: 2D digital imaging was performed. COMPARISON: CR LEFT ELBOW COMPLETE from 05/18/2013 FINDINGS: 3 views No evidence of fracture or joint effusion and there is no swelling of the olecranon bursa. Radial he ad and neck are unremarkable. No degenerative changes. Epicondyles unremarkable. No loose bodies. IMPRESSION: No significant osseous findings in the elbow. DATA REPOSITORY: RADIATION DOSE DELIVERED:
== END 2022-08-25 09:19 ==
PROVIDERS: PCP Nurse Practitioner Family; Visit Provider Orthopaedic Surgery
DX: M25.522 Pain in left elbow (principal); M77.12 Lateral epicondylitis, left elbow
CPT/HCPCS: 73080

== ENCOUNTER 2022-11-17 15:22 | Outpatient (REF) | payer MEDICARE, SELFPAY ==
[2022-11-17 14:58] LABS: TSH (W/Ref FT4) 1.14 uIU/mL (0.36-3.74)
== END 2022-11-17 15:23 | disposition home or self-care (01) ==
LOC: NCHCN 15:22
PROVIDERS: PCP Nurse Practitioner Family; Visit Provider Nurse Practitioner Family
DX: R00.2 Palpitations (principal); E78.5 Hyperlipidemia, unspecified; E03.9 Hypothyroidism, unspecified; E55.9 Vitamin D deficiency, unspecified
CPT/HCPCS: 84443

== ENCOUNTER → 2022-12-24 10:26 | Outpatient (BNVA) | payer MEDICARE, SELFPAY | PROVIDERS: PCP Nurse Practitioner Family; Referring Provider Nurse Practitioner Family; Visit Provider Nurse Practitioner Adult Health | DX: G43.019 Migraine without aura, intractable, without status migrainosus (principal); G47.00 Insomnia, unspecified; F39 Unspecified mood [affective] disorder; G89.29 Other chronic pain | CPT/HCPCS: 99214 ==

== ENCOUNTER 2023-01-25 13:38 | Outpatient (REF) | payer MEDICARE, SELFPAY ==
[2023-01-25 17:43] LABS: Anion Gap 9.7 mmol/L (3-11); BUN 20 mg/dL (7-18); CO2 29.3 mmol/L (21.0-32.0); CREATININE 0.7 mg/dL (0.55-1.02); Calcium 9.9 mg/dL (8.5-10.1); Chloride 102 mmol/L (98-107); Estimated GFR 95.92 (mL/min/1.73m2); Glucose 93 mg/dL (74-106); Magnesium 2.2 mg/dL (1.8-2.4); Potassium 4.5 mmol/L (3.5-5.1); Sodium 141 mmol/L (136-145)
== END 2023-01-25 13:39 | disposition home or self-care (01) ==
LOC: NCHCN 13:38
PROVIDERS: PCP Nurse Practitioner Family; Visit Provider Nurse Practitioner Family
DX: R07.89 Other chest pain (principal); R00.2 Palpitations; E55.9 Vitamin D deficiency, unspecified; R19.8 Other specified symptoms and signs involving the digestive system and abdomen; E78.5 Hyperlipidemia, unspecified; M54.9 Dorsalgia, unspecified; K30 Functional dyspepsia; G43.909 Migraine, unspecified, not intractable, without status migrainosus; Z78.0 Asymptomatic menopausal state
CPT/HCPCS: 80048; 83735; 84443

== ENCOUNTER → 2023-01-28 10:08 | Outpatient (BNVA) | payer MEDICARE, SELFPAY | PROVIDERS: PCP Nurse Practitioner Family; Referring Provider Nurse Practitioner Family; Visit Provider Physical Therapy Assistant | DX: K21.9 Gastro-esophageal reflux disease without esophagitis (principal) | CPT/HCPCS: 99213 ==

== ENCOUNTER 2023-02-01 00:37 | Outpatient (CLI) | payer MEDICARE, SELFPAY ==
--- NOTE | 2023-02-01 09:00 | ETT_ITS ---
APPROVED REPORT Exam: Exercise Treadmill Patient Location: Out-Patient Room/Bed: Stress Nurse: Ange Vides RN Ordering Provider:JAI GAFFENY, Contact Number: BMI: 32.44 Baseline Rhythm: Sinus Rhythm Indications: Chest discomfort, palpitations. Medical History Medical History: Hyperlipidemia,hypothyroidism, Chronic pain. Cardiac Medications: Magnesium, Ashwagandha, Boswella, Tumeric, Allergies: Sulfa, Amitriyline, gabapentin. Cardiac Risk Factors: Hyperlipidemia, Obesity Previous Cardiac Procedures: none Pretest Chest Pain Characteristics: No chest pain Exercise History: Sedentary Physical Disabilities: none Lung Sounds: clear Heart Sounds: regular Stress Test Details Test: Exercise stress testing was performed using a Gustavo protocol. Rest Stress HR Resting HR Supine: 73 bpm Max Heart Rate (APMHR): 155 bpm Resting HR Standin bpm Target HR (85% APMHR): 132 bpm Max HR Achieved: 160 bpm % of APMHR: 103 Recovery HR: 92 bpm HR response to stress: Normal HR response to stress BP Resting BP Supine: 138/72 mmHg Resting BP Standin/82 mmHg Max BP: 180/68 mmHg Recovery BP: 134/78 mmHg BP response to stress: Normal blood pressure response to stress. ECG Resting ECG: Sinus Rhythm Ectopy: none Stress ECG: Sinus Tachycardia ST Change: Upsloping ST depression Lead(s): II, III, AVF Stage: [address] Deviation: 1..0 mm Arrhythmia: None Recovery ECG: Sinus Rhythm Recovery ST Change: Upsloping ST depression Lead(s): II, III, AVF Recovery ST Deviation: 0.5 mm Recovery Arrhythmia: PVC's Comment: ST depressions resolved to baseline during recovery. Clinical Reason for Termination: Target HR Achieved, Fatigue Stress Symptoms: General Fatigue Exercise duration: 5 min38 sec Highest Stage Reached: Stage 2: 2.5 mph at 12% grade. Exercise capacity: 7.05 METs Angina Score: None Bales Treadmill Score: 0.0 Rate Pressure Product: 21718 Stress ECG Conclusion 1. Resting electrocardiogram was within normal limits 2. Patient exercised on the Gustavo protocol completed a workload of 7.05 METS, stopping due to fatigue 3. Peak heart rate achieved was 100% of predicted for age. Normal heart rate and blood pressure resp onse to exercise 4. There was no electrocardiographic evidence of myocardial ischemia 5. There were no significant dysrhythmias Bales Treadmill Score is 0.0 which is Moderate risk. Stress Test Summary STAGE Time (mins) Speed (mph) Grade (%) HR BP SpO2 SYMPTOMS METS Supine 73 138/72 Standing 75 152/82 96 1 3 1.7 10 136 4.5 2 6 2.5 12 156 164/78 7 1 min recovery 132 180/68 99 3 min recovery 97 142/64 6 min recovery 92 134/78
== END 2023-02-01 00:57 ==
LOC: DI 00:37
PROVIDERS: PCP Nurse Practitioner Family; Visit Provider Nurse Practitioner Family
DX: R07.89 Other chest pain (principal)
CPT/HCPCS: 93016; 93018; 93017

== ENCOUNTER 2023-02-05 09:24 | Outpatient (RCR) | payer MEDICARE, SELFPAY ==
--- NOTE | 2023-02-05 09:15 | HOLTER_ITS ---
APPROVED REPORT Conclusion This is a 48-hour Holter monitor ordered for palpitations Rhythm throughout is sinus with an average heart rate of 75. Minimum was 57, maximum 123 There was 1 premature ventricular contraction A total of 12 isolated atrial premature beats were seen Patient symptoms were reported but could not be correlated with any dysrhythmia
== END 2023-03-01 23:59 | disposition home or self-care (01) ==
LOC: CARDOPNVT 09:24
PROVIDERS: PCP Nurse Practitioner Family; Visit Provider Nurse Practitioner Family
DX: R00.2 Palpitations (principal)
CPT/HCPCS: 93227; 93225; 93226

== ENCOUNTER → 2023-02-25 11:15 | Outpatient (BNVA) | payer MEDICARE, SELFPAY | PROVIDERS: PCP Nurse Practitioner Family; Referring Provider Nurse Practitioner Family; Visit Provider Physical Therapy Assistant | DX: K21.9 Gastro-esophageal reflux disease without esophagitis (principal); R14.0 Abdominal distension (gaseous); R00.2 Palpitations | CPT/HCPCS: 99213 ==

== ENCOUNTER → 2023-03-19 00:42 | Outpatient (CLI) | payer MEDICARE, SELFPAY ==
--- NOTE | 2023-03-19 10:20 | DI.DEXA_ITS ---
Exam(s) XR DEXA BONE DENSITY W/WO KWASI EXAM: XR DEXA BONE DENSITY W/WO KWASI CLINICAL HISTORY: POSTMENOPAUSAL Z78.0 VIT D DEFICIENCY E55.9 TECHNIQUE: Routine DEXA evaluation of the lumbar spine, hip, or forearm. COMPARISON: No exams were available for comparison FINDINGS: Performed on a Hologic unit. Lateral image: Hardware throughout the lumbosacral spine extending to the mid thoracic spine level. Lumbar Spine total T-score: Not done Hip total T-score:-0.4 Independent reading at the level of the femoral neck yields T-score of -0.6 Forearm total T-score: 0.4 IMPRESSION: Bone mineral density measures in the normal range. Fracture risk is no. Note: Any spine fracture indicates 5x risk for subsequent spine fracture and 2x risk for subsequent h ip fracture. World Health Organization criteria for BMD interpretation classify patients: Normal...... T- Score at or above -1.0 Osteopenic... T- Score between -1.0 and -2.5 Osteoporosis... T-Score at or below -2.5
== END ==
PROVIDERS: PCP Nurse Practitioner Family; Visit Provider Nurse Practitioner Family
DX: Z78.0 Asymptomatic menopausal state (principal); Z13.820 Encounter for screening for osteoporosis; E55.9 Vitamin D deficiency, unspecified
CPT/HCPCS: 77080

== ENCOUNTER 2023-03-24 10:06 | Day surgery (SDC) | payer MEDICARE, SELFPAY ==
[2023-03-24] VITALS (7 sets, daily range): BP systolic 96–147; BP diastolic 43–79; PULSE 63–80; RESP 13–20; TEMP 36.2–36.7; O2SAT 97–100; BMI 32.5
--- NOTE | 2023-03-24 06:27 | W.ANESPRE ---
General Info Date of Service Date Performed: 03/24/23 Height: 5 ft 5 in Weight: 88.904 kg Body Mass Index (BMI): 32.5 Surgical Procedure: Operation Date: 03/24/23 14:05 Proposed Procedure Side Surgeon p Gastroscopy Sveta Zarate MD Meds Allergies and Home Medications Allergies Allergy/AdvReac Type Severity Reaction Status Date / Time amitriptyline Allergy Mild Unknown Verified 03/24/23 11:16 Sulfa (Sulfonamide AdvReac Intermediate blood Verified 03/24/23 11:16 Antibiotics) pressure, oxygen levels down gabapentin AdvReac Mild constipatio Verified 03/24/23 11:16 n Home Medication Medication Instructions Recorded docusate sodium 100 mg capsule 100 mg PO DAILY 04/16/21 trazodone 50 mg tablet 50 mg PO QHS PRN 09/17/21 coenzyme Q10 75 mg capsule (Ultra 200 mg PO DAILY 03/17/22 CoQ10) duloxetine 20 mg capsule,delayed 20 mg PO DAILY 03/17/22 release magnesium oxide 400 mg PO BID 03/17/22 melatonin 3 mg capsule 3 mg PO HS 03/17/22 omega-3 fatty acids 1,000 mg 2,000 mg PO DAILY 03/17/22 capsule (Fish Oil Concentrate) riboflavin (vitamin B2) 100 mg 200 mg PO DAILY 03/17/22 tablet tumeric 100 mg-darcie 150 mg-olive 1 cap PO BID 03/17/22 50 mg-oreg 150 mg-caprylate capsule ashwagandha root extract 500 mg 500 mg PO DAILY 03/18/22 capsule cholecalciferol (vitamin D3) 125 125 mcg PO DAILY 06/02/22 mcg (5,000 unit) capsule levothyroxine 125 mcg tablet 125 mcg PO DAILY 06/02/22 colchicine (gout) 0.6 mg capsule 0.6 mg PO DAILY PRN 06/16/22 Lactobacillus acidophilus 10 10,000 mmu cells PO DAILY 12/24/22 billion cell capsule (Probiotic) boswelia PO DAILY 12/24/22 fremanezumab-vfrm 225 mg/1.5 mL 225 mg (1.5 mL) subcut QMONTH #1.5 12/24/22 subcutaneous auto-injector (Ajovy) mL vitamin B complex 1 tab PO DAILY 12/24/22 ketorolac 10 mg tablet See Rx Instructions .Route 01/19/23 .COMPLEX #14 tabs pantoprazole 20 mg tablet,delayed 20 mg PO DAILY 01/28/23 release (Protonix) sucralfate 1 gram tablet (Carafate) 1 g PO QACHS GERD #90 tabs 01/28/23 metoprolol succinate 25 mg 12.5 mg PO DAILY 03/24/23 tablet,extended release 24 hr Current Visit Medications: Current Medications Generic Name Dose Route Start Last Admin Trade Name Felicia PRN Reason Stop Dose Admin Ringer's Solution 1,000 mls @ 80 mls/hr 03/24/23 06:00 IV 03/24/23 23:59 INFUSION JARVIS IV Miscellaneous Supplies 1 each 03/24/23 06:00 Iv Access IV 03/24/23 23:59 DIRECTED JARVIS Sodium Chloride 0 ml 03/24/23 06:00 Normal Saline Flush 10 Ml Syr IV 03/24/23 23:59 PRN PRN Sodium Chloride 0 ml 03/24/23 06:00 Normal Saline 10 Ml Vial IJ 03/24/23 23:59 DIRECTED PRN Sterile Water 0 ml 03/24/23 06:00 Water,Injection,Sterile 10 Ml Vial IJ 03/24/23 23:59 DIRECTED PRN PFSH Active Problems Active Problems: Problem Status Onset Code Gastroesophageal reflux disease K21.9 Migraine headache without aura G43.009 Chronic pain syndrome G89.4 Persistent headaches R51.9 Screening for colon cancer Z12.11 Sensorineural hearing loss (SNHL) of both ears H90.3 Chronic daily headache R51.9 Caregiver burden Z63.6 Normal colonoscopy Medical History Medical History Arthritis of right acromioclavicular joint Back pain Bursitis of right shoulder Constipation Hypothyroidism Iliotibial band syndrome of left side Impingement syndrome of right shoulder Migraine aura, persistent, intractable Migraine headache without aura Radioscaphoid impaction syndrome of right wrist Right ankle sprain (03/19/21) Scoliosis SLAP lesion of right shoulder Stress incontinence Tendinitis of long head of biceps brachii of right shoulder Thyroid nodule Trochanteric bursitis of left hip Tubular adenoma of colon (02/09/17) Surgical History Surgical History Arthroplasty of knee left this is NOT a TKA per patient back surgery Rods from T4-S1 for scoliosis bunionectomy Rt. Foot Colonoscopy - MAC (02/09/17) 07/2022 excision ganglion cyst H/O partial thyroidectomy H/O shoulder surgery History of surgery SLAP right wrist History of surgery on wrist Slac surgery [facility] [place] Spinal Fusion LS wisdom teeth extraction Tobacco Smoking/Tobacco Use Status: Never Alcohol Alcohol Intake: never Substance Use Substance use: Never Substance use type: does not use Vital Signs and Lab Results Vital Signs Most Recent Vital Signs in EMR: Temp Pulse Resp BP Pulse Ox 36.2 C L 66 14 130/66 100 03/24/23 11:25 03/24/23 11:25 03/24/23 11:25 03/24/23 11:25 03/24/23 11:25 Lab Results Blood Type / Crossmatch: No Data to Display Complete Blood Count: No Data to Display Complete Metabolic Panel: No Data to Display Liver Function Panel: No Data to Display Coagulation Panel: No Data to Display Cardiac Panel: No Data to Display Arterial Blood Gas: No Data to Display Venous Blood Gas: No Data to Display Pancreas Panel: No Data to Display Thyroid Panel: No Data to Display Infectious Disease: No Data to Display Blood Cultures: No Data to Display Toxicology Panel: No Data to Display Imaging and Studies Imaging and Studies Study information below may be from another EMR and interpreted by another provider. Please see original notes in EMR for more complete details. Stress Test Summary: 02/21: MET 7, 100% predicted HR, no ECG evidence of ischemia. Anesthesia Assessment and Plan Anesthesia History Personal History: No History of Anesthesia Complications Family History: No Family History of Anesthesia Complications Exercise Tolerance Exercise Tolerance: Metabolic Equivalents>4 Pertinent Negatives Pertinent Negatives: No Major Pulmonary Symptoms or Complaints and No History of CVA/TIA Cardiac & Pulmonary Exam Cardiac Exam: Normal S1/S2 Heart Sounds Pulmonary Exam: Clear Bilateral Breath Sounds Implantable Cardiac Device Does patient have a Pacemaker or an ICD?: No Airway Exam Known Difficult Airway: No Mallampati Class: 3 Mouth Opening: Narrow (< 3cm) Thyromental Distance: Greater than 3 cm Neck Range of Motion: Full ROM Neck Circumference: Normal Teeth Condition: Normal Dentition ASA Classification ASA Score: ASA 2 Emergency Case?: No NPO Status NPO Status: NPO Clears >2 hours, Solids >8 hours Anesthesia Plan Resuscitation Status: Full Code Anesthesia Technique: General Anesthesia Airway Planned: Endotracheal Tube Monitors Used: Standard Monitors Preoperative Comments:: 67 yo female for EGD. Sig PMHx: GERD (pantoprazole), hypothyroid (on replacement), never smoker/EtOH. Previous Anes: - colo, prop, natural airway, no issues. - shoulder, kiran 2 grade 2b, easy mask, vomiting of large amount of bile at the end while coughing on ETT. - colo, prop, natural airway, prop turned off due to vomiting large amount of bile.
--- NOTE | 2023-03-24 07:12 | PGE_ITS ---
Date of Service Date of service: 03/24/23 Time of Service: 12:50 Assessment and Plan Assessment and plan (1) Gastroesophageal reflux disease: Status: Chronic Assessment and plan: Camelia is a pleasant 67-year-old female who came in to the office complaining of epigastric discomfort, heartburn, dysphagia and reflux type symptoms. She has now also developed nausea. She was treated with Carafate for a month and Protonix. She feels like the Carafate helped more than the Protonix is helping. She has not had any emesis. We discussed the procedure in detail as well as the possible risks, benefits and complications. After conversation the patient was comfortable to proceed and had a good understanding of the procedure and its complications. Risks, benefits and complications have been reviewed. Complications include but are not limited to bleeding, pain, perforation, sore throat, aspiration, and adverse reaction to the medications. Questions were entertained and answered to their satisfaction and they wished to proceed. No guarantees were given or implied. Proceed with EGD under sedation with biopsies. Subjective Subjective Interval history since last seen: Camelia is a pleasant 67-year-old female who I am seeing for the first time in same-day surgery. She was seen in January for heartburn and reflux symptoms. She had been started on Carafate and Protonix in December. She felt like the Carafate probably helped more. She continues on the Protonix but does not feel that it is really doing much for her symptoms. She continues to complain of heartburn type symptoms, reflux, dysphagia and recently has also had nausea. She has not had any vomiting. Past medical history otherwise significant for migraines chronic pain syndrome hearing loss. She denies any chest pain or palpitations. She has no shortness of breath with activity. Exam Const General: cooperative, comfortable and no acute distress Nutritional Appearance: average body habitus Orientation: alert and oriented x3 [facility] Head: normocephalic and atraumatic Resp Effort & Inspection: normal respiratory effort Auscultation: clear to auscultation bilaterally Cardio Rate: regular rate Rhythm: regular rhythm GI Inspection: normal to inspection Palpation: soft, no hepatosplenomegaly and tender (epigastric) Time Spent with Patient Time Spent with Patient: <25 minutes Time was spent: counseling the patient
--- NOTE | 2023-03-24 07:13 | ENDO_ITS ---
Date of service: 03/24/23 Time of Service: 13:43 Endoscopy Report DATE OF PROCEDURE: 03/24/23 PRE-OP DIAGNOSIS: GERD, Dysphagia, POST-OP DIAGNOSIS: same (and gastritis and schatzki's ring) PROCEDURE: EGD with biopsies SURGEON: Sveta Zarate ANESTHESIA TYPE: General:No Airway ESTIMATED BLOOD LOSS: 3 PATHOLOGY: other (Bx of the duodenum, antrum and GE junction) COMPLICATIONS: None DISPOSITION: same day INDICATIONS: Camelia is a pleasant 67-year-old gentleman who was seen in the office with complaints of reflux, heartburn and dysphagia. She was started on Carafate and Protonix. She had some improvement but once she stopped the Carafate her symptoms came back. She continues on the Protonix but does not feel that it is really working. She has never had an upper endoscopy. Risks, benefits and complications have been reviewed. Complications include but are not limited to bleeding, pain, perforation, sore throat, aspiration, and adverse reaction to the medications. Questions were entertained and answered to their satisfaction and they wished to proceed. No guarantees were given or implied. FINDINGS: Inflammation of the stomach and GE junction Schatzki's ring PROCEDURE DESCRIPTION: After informed consent was obtained the patient was take to the procedure room and placed in a supine position. Monitors were applied and a time out was done. The patients name, date of , procedure type, allergies to medications and metal in their body was reviewed. The patient was placed under General anesthesia and intubated. A bite block was placed. Once sedated and comfortable the gastroscope was advanced through the oropharynx which was grossly normal into the esophagus. The proximal and mid- esophagus were normal. In the distal esophagus there was inflammation noted as well as a Schatzki's ring. The scope was advanced into the stomach and through the pylorus into the 3rd portion of the duodenum. The duodenum was noted to be normal. Biopsies were done. The scope was retracted back into the stomach. There was moderate inflammation noted and biopsies were done to rule out H. pylori. There were no ulcers. The scope was retroflexed. The cardia and fundus were noted to be normal. There was no hiatal hernia noted. The scope was retracted back into the esophagus and biopsies were done of the GE junction to rule out Palmer's. The Z line was regular. The GE junction was at 40 cm. The scope was removed and the patient was woken up and taken back to [facility] in stable condition. Follow up: 10 days
--- NOTE | 2023-03-24 07:14 | W.PM.DSUDISC ---
Date of service: 03/24/23 Time of Service: 14:23 Discharge Plan Disposition Patient Disposition: Home Condition: Stable Discharge Details Reason For Visit: egd Attending Provider: Sveta Zarate Primary Care Provider: Preeti Kidd Home Meds and New Rx's Prescriptions: New famotidine 40 mg tablet 40 mg PO BID Qty: 60 5RF sucralfate [Carafate] 1 gram tablet 1 g PO QACHS 30 Days Qty: 120 0RF Rx Instructions: You may dissolve the tab in 2-3 oz of water and take it that way Continued omega-3 fatty acids [Fish Oil Concentrate] 1,000 mg capsule 2,000 mg PO DAILY trazodone 50 mg tablet 50 mg PO QHS PRN ntbcxoo-rzlt-eshrk-oreg-capryl 100 mg-150 mg- 50 mg-150 mg capsule 1 cap PO BID duloxetine 20 mg capsule,delayed release(DR/EC) 20 mg PO DAILY magnesium oxide 400 mg magnesium capsule 400 mg PO BID melatonin 3 mg capsule 3 mg PO HS riboflavin (vitamin B2) 100 mg tablet 200 mg PO DAILY Ultra CoQ10 75 mg capsule 200 mg PO DAILY ashwagandha root extract 500 mg capsule 500 mg PO DAILY colchicine (gout) 0.6 mg capsule 0.6 mg PO DAILY PRN Patient Comments: Prescribed but pt states they have never used Probiotic 10 billion cell capsule 10,000 mmu cells PO DAILY vitamin B complex Tablet 1 tab PO DAILY boswelia PO DAILY Ajovy Autoinjector 225 mg/1.5 mL auto-injector 225 mg subcut QMONTH Qty: 1.5 11RF levothyroxine 125 mcg tablet 125 mcg PO DAILY cholecalciferol (vitamin D3) 125 mcg (5,000 unit) capsule 125 mcg PO DAILY ketorolac 10 mg tablet See Rx Instructions .ROUTE .COMPLEX Qty: 14 3RF Dose Instruction: TAKE ONE TABLET BY MOUTH TWICE A DAY NEEDED FOR HEADACHE Rx Instructions: TAKE ONE TABLET BY MOUTH TWICE A DAY NEEDED FOR HEADACHE docusate sodium 100 mg capsule 100 mg PO DAILY metoprolol succinate 25 mg tablet extended release 24 hr 12.5 mg PO DAILY Patient Comments: TAKE ONE-HALF TABLET BY MOUTH EVERY DAY Discontinued pantoprazole [Protonix] 20 mg tablet,delayed release (DR/EC) 20 mg PO DAILY sucralfate [Carafate] 1 gram tablet 1 g PO QACHS Qty: 90 0RF Discharge Instructions Instructions: Gastritis (DC), Diet for Stomach Ulcers and Gastritis (ED), GERD (Gastroesophageal Reflux Disease) (DC) Additional Instructions: Findings: Inflammation of the stomach and esophagus Scar tissue in the esophagus- Follow up: 2 weeks Diet: Low acid diet Medications: Carafate 1 tab before meals and at bedtime. You can dissolve the tablet in 2-3 ounces of water and drink the slurry Pepcid 40 mg BID Please call if you develop: fevers >101.5 Nausea or Vomiting Abdominal pain that is not transient Rectal bleeding that is more then a tbsp A hard abdomen and inability to pass gas DAY SURGERY UNIT POST ENDOSCOPY INSTRUCTIONS Instructions for everyone who is given Anesthesia: For your safety, please do the following for the next 24 Hours: a. Do not drive or operate dangerous equipment b. Do not drink alcohol beverages or use any recreational drugs for the first 24 hours or while taking pain medications. The medications in your body may have a reaction that can be dangerous. c. Do not make any important decisions or sign any important papers 1. Generally there are no restrictions on your activity after a day or so has gone by, but you may feel a bit fatigued for a few days. 2. After you arrive home you may have a light meal and return to a normal diet as you can tolerate it without feeling sick to your stomach. 3. After surgery, you may feel pain or discomfort. This should be only transient, but if it persists please contact your doctor. 4. If there are any questions regarding the findings of your procedure, please feel free to contact your doctor. 6. If you are unable to contact your doctor with a problem, contact the hospital at [phone]. 7. Continue all your regular medications unless directed otherwise. I understand the above instructions and have no questions. Signature of Patient or Responsible Adult Escort Date/Time Name of Responsible Adult Escort Signature of Nurse Date/Time Referrals: Sveta Zarate MD [ [facility] STAFF PHYSICIAN] - 04/02/23 9:00 am Activity:: Activity as Tolerated Diet:: see above Discharge Orders Discharge Orders: Discharge Order (Routine); Ordered 03/24/23 Ordered By: Sveta Zarate DS: Diagnosis Discharge Diagnosis (1) Gastroesophageal reflux disease: Status: Chronic Asessment and Plan: Patient is seen and examined after their endoscopy. Patient has minimal sore throat. They have been able to tolerate liquids. They do not have any Nausea or Vomiting. They are not having any chest pain or shortness of breath. They have been able to pass gas and are not having any abdominal pain or distention. they have not vomited any blood. The vital signs have been stable-see nursing notes. We discussed findings on their endoscopy We reviewed the importance of lifestyle modifications- see diet recommendations We reviewed any new medications that the patient may be prescribed- see medicine reconciliation. Patient will either be sent a letter with the biopsy results or follow up in the office- see discharge instructions Patient was given explicit instructions for emergency follow up post endoscopy- see discharge instructions Patient verbalized understanding and was discharged in stable and satisfactory condition. See nursing notes.
[2023-03-24] MEDS: Lactated Ringers 1,000 ML 80 ML IV (11:55)
--- NOTE | 2023-03-24 13:28 | STOM_PTH ---
PATIENT: Camelia Vazquez LOC: [facility] U#:[id number] AGE/SX: 67/F ROOM: RE03/24/[address]: Sveta Zarate MD : 1955 BED: DIS: 03/24/2023 SPEC #: [id number] RECD: 03/24/23 18:21 STATUS: DAWAN REQ #: [id number] QUAN: 03/24/23 13:[address]: Sveta Zarate DEPT: Surgical Specimen RECD BY: Camelia Zhu ENTERED: 03/24/23 18:22 SP TYPE: STOMACH OTHR DR: Preeti Kidd Tissues: 1 - BIOPSY BOWEL 2 - STOMACH BIOPSY 3 - STOMACH BIOPSY 4 - ESOPHAGUS BIOPSY Procedures: GROSS AND MICRO LEVEL 4 Comments: [id number]
--- NOTE | 2023-03-24 14:10 | W.ANESPOSTOP ---
Postoperative Evaluation Date, Time and Location Date Performed: 03/24/23 Time Performed: 13:58 Patient Location: PACU Vital Signs Most Recent Imported Vital Signs: Most Recent Vital Signs Temp Pulse Resp BP Pulse Ox 36.7 C 75 18 126/52 L 98 03/24/23 14:00 03/24/23 14:00 03/24/23 14:00 03/24/23 14:00 03/24/23 14:00 Pain Score Most Recent Pain Score: Most Recent Pain Score Pain Level 0 03/24/23 14:00 Assessment Mental Status: Awake (Alert & Oriented to Patient Baseline) Airway and Respiratory Function: Patent airway with normal (patient baseline) respiratory exam Cardiovascular Function: Hemodynamically Stable Hydration Status: Adequately Hydrated Nausea & Vomiting: No Nausea or Vomiting Pain: Pt. Denies Any Pain Peripheral Nerve Block: Patient did not receive a nerve block
--- NOTE | 2023-03-24 14:13 | W.ANESPOSTOP ---
Postoperative Evaluation Date, Time and Location Date Performed: 03/24/23 Time Performed: 14:13 Patient Location: PACU Vital Signs Most Recent Imported Vital Signs: Most Recent Vital Signs Temp Pulse Resp BP Pulse Ox 36.7 C 75 18 126/52 L 98 03/24/23 14:00 03/24/23 14:00 03/24/23 14:00 03/24/23 14:00 03/24/23 14:00 Most Recent Vital Signs Temp Pulse Resp BP Pulse Ox 36.7 C 75 18 126/52 L 98 03/24/23 14:00 03/24/23 14:00 03/24/23 14:00 03/24/23 14:00 03/24/23 14:00 Pain Score Most Recent Pain Score: Most Recent Pain Score Pain Level 0 03/24/23 14:00 Assessment Mental Status: Awake (Alert & Oriented to Patient Baseline) Airway and Respiratory Function: Patent airway with normal (patient baseline) respiratory exam Cardiovascular Function: Hemodynamically Stable Hydration Status: Adequately Hydrated Nausea & Vomiting: No Nausea or Vomiting Pain: Pt. Denies Any Pain Peripheral Nerve Block: Patient did not receive a nerve block
== END 2023-03-24 15:05 | disposition home or self-care (01) ==
PROVIDERS: PCP Nurse Practitioner Family; Visit Provider Surgery
PROC: 0DJ68ZZ Inspection of Stomach, Via Natural or Artificial Opening Endoscopic (ICD-10-PCS; CPT 43235; principal; 2023-03-24 14:00)
DX: K21.9 Gastro-esophageal reflux disease without esophagitis (principal); R13.10 Dysphagia, unspecified; K22.2 Esophageal obstruction; K29.70 Gastritis, unspecified, without bleeding; K22.89 Other specified disease of esophagus
CPT/HCPCS: 43239; 88305

== ENCOUNTER → 2023-03-25 09:41 | Outpatient (BNVA) | payer MEDICARE, SELFPAY | PROVIDERS: PCP Nurse Practitioner Family; Visit Provider Nurse Practitioner Adult Health | DX: G43.019 Migraine without aura, intractable, without status migrainosus (principal); F39 Unspecified mood [affective] disorder; G47.00 Insomnia, unspecified; G89.29 Other chronic pain | CPT/HCPCS: 99213; 99214 ==

== ENCOUNTER → 2023-04-02 08:52 | Outpatient (BNVA) | payer MEDICARE, SELFPAY | PROVIDERS: PCP Nurse Practitioner Family; Referring Provider Nurse Practitioner Family; Visit Provider Surgery | DX: Z09 Encounter for follow-up examination after completed treatment for conditions other than malignant neoplasm (principal); K21.9 Gastro-esophageal reflux disease without esophagitis | CPT/HCPCS: 99212; 99213 ==

== ENCOUNTER 2023-04-20 13:51 | Outpatient (REF) | payer MEDICARE, SELFPAY ==
--- NOTE | 2023-04-20 11:45 | PAPFT_PTH ---
PATIENT: Camelia Vazquez LOC: [facility]#:[id number] AGE/SX: 67/F ROOM: RE04/20/[address]: Preeti Kidd : 1955 BED: DIS: 04/20/2023 SPEC #: [id number] RECD: 04/20/23 16:53 STATUS: DAWNA REQ #: [id number] QUAN: 04/20/23 11:[address]: Preeti Kidd DEPT: [facility] Cytology RECD BY: Camelia Zhu Tissues: 1 - CX/ENDOCX FOR PAP SMEARS Procedures: PAP THIN PREP/UVM Screening HPV DNA PROBE Comments: [id number]
== END 2023-04-20 13:52 | disposition home or self-care (01) ==
LOC: NCHCN 13:51
PROVIDERS: PCP Nurse Practitioner Family; Visit Provider Nurse Practitioner Family
DX: Z11.51 Encounter for screening for human papillomavirus (HPV) (principal); Z01.419 Encounter for gynecological examination (general) (routine) without abnormal findings
CPT/HCPCS: 88142; 87624

== ENCOUNTER → 2023-04-20 15:30 | Outpatient (BNVA) | payer MEDICARE, SELFPAY | PROVIDERS: PCP Nurse Practitioner Family; Referring Provider Nurse Practitioner Family; Visit Provider Nurse Practitioner Adult Health | DX: R51.9 Headache, unspecified (principal) | CPT/HCPCS: 64405; 99212 ==

== ENCOUNTER → 2023-08-12 01:44 | Outpatient (CLI) | payer MEDICARE, SELFPAY ==
--- NOTE | 2023-08-12 | DI.RAD_ITS ---
Exam(s) XR KNEE RT 3V AP,LAT,NIKA EXAM: XR KNEE RT 3V AP,LAT,NIKA CLINICAL HISTORY: RT KNEE PAIN, M25.569. TECHNIQUE: 2D digital imaging was performed. COMPARISON: No exams were available for comparison FINDINGS: 3 views No evidence of acute fracture. No obvious joint effusion. No obvious degenerative changes. Bone de nsity normal. No osseous lesions. IMPRESSION: No significant osseous findings in the right knee. DATA REPOSITORY: RADIATION DOSE DELIVERED:
== END ==
PROVIDERS: PCP Nurse Practitioner Family; Visit Provider Family Medicine
DX: M25.561 Pain in right knee (principal)
CPT/HCPCS: 73562

== ENCOUNTER → 2023-09-30 08:51 | Outpatient (BNVA) | payer MEDICARE, SELFPAY | PROVIDERS: PCP Nurse Practitioner Family; Referring Provider Nurse Practitioner Family; Visit Provider Nurse Practitioner Adult Health | DX: G43.019 Migraine without aura, intractable, without status migrainosus (principal); R29.898 Other symptoms and signs involving the musculoskeletal system | CPT/HCPCS: 99214 ==

== ENCOUNTER 2023-11-11 09:01 | Outpatient (REF) | payer MEDICARE, SELFPAY ==
[2023-11-11 16:36] LABS: ALT 32 U/L (14-59); AST 12 U/L (15-37); Albumin 4.1 g/dL (3.4-5.0); Alkaline Phosphatase 106 U/L (46-116); Anion Gap 10.9 mmol/L (3-11); BUN 26 mg/dL (7-18); Bilirubin, Total 0.5 mg/dL (0.2-1.0); CO2 28.1 mmol/L (21.0-32.0); CREATININE 0.8 mg/dL (0.55-1.02); Calcium 9.3 mg/dL (8.5-10.1); Chloride 105 mmol/L (98-107); Estimated GFR 81.21 (mL/min/1.73m2); Glucose 101 mg/dL (74-106); Potassium 4.8 mmol/L (3.5-5.1); Sodium 144 mmol/L (136-145); Total Protein 7.5 g/dL (6.4-8.2)
[2023-11-11 16:40] LABS: FREE T4 1.09 ng/dL (0.76-1.46); TSH 0.22 uIU/Ml (0.36-3.74)
[2023-11-11 16:41] LABS: Vitamin D 25 Total 40.8 ng/mL (30-100)
[2023-11-11 22:13] LABS: T3,Free 3.5 pg/mL (2.8-5.3)
== END 2023-11-11 09:02 | disposition home or self-care (01) ==
LOC: NCHCN 09:01
PROVIDERS: PCP Nurse Practitioner Family; Visit Provider Nurse Practitioner Family
DX: E03.9 Hypothyroidism, unspecified (principal); E55.9 Vitamin D deficiency, unspecified; R07.9 Chest pain, unspecified
CPT/HCPCS: 80053; 82306; 84439; 84443; 84481

== ENCOUNTER → 2023-12-03 02:22 | Outpatient (CLI) | payer MEDICARE, SELFPAY ==
--- NOTE | 2023-12-03 | DI.MAMMO_ITS ---
Exam(s) MAMMO SCREENING EXAM: MAMMO SCREENING CLINICAL HISTORY: SCREENING MAMMO FOR BREAST CANCER Z12.31. TECHNIQUE: Bilateral full field digital CC and MLO mammographic images were obtained with 3D tomosyn thesis and utilizing computer aided detection (CAD). COMPARISON: Prior mammograms were reviewed. FINDINGS: There has been no significant change in the appearance and distribution of the fibroglandular tissue. There are no CAD designations. There are no new spiculated masses nor malignant appearing microcalcification groups. There is no significant architectural distortion nor skin thickening-retraction. IMPRESSION: No radiographic evidence of malignancy. BI-RADS Category 1 - Negative Breast Density - Category B - Scattered areas of fibroglandular density Breast density Category C or D implies that the patient has dense breast tissue. Dense breast tissue can make it harder to find cancer on a mammogram. Dense breast tissue is also associated with an incr eased risk of breast cancer. This information about the result of the mammogram report was provided to the patient to raise their awareness. Use this report when you speak with the patient about their risks for breast cancer, which includes their family history. At that time, you may recommend additional screening tests (Ultrasoun d or MRI) as these tests may add significant information. A negative radiographic report should not delay biopsy if a dominant or clinically suspicious mass is present. Up to ten percent of cancers are not identified on mammography. A negative report may reinforce clinical impression. Adenosis and dense breasts may obscure an underlying neoplasm. False positive reports average 6 to 10%. Patient will receive a letter notifying them of these results.
== END ==
PROVIDERS: PCP Nurse Practitioner Family; Visit Provider Nurse Practitioner Family
DX: Z12.31 Encounter for screening mammogram for malignant neoplasm of breast (principal)
CPT/HCPCS: 77063; 77067

== ENCOUNTER 2024-01-03 10:32 | Outpatient (REF) | payer MEDICARE, SELFPAY ==
[2024-01-03 16:23] LABS: TSH (W/Ref FT4) 0.44 uIU/mL (0.36-3.74)
== END 2024-01-03 10:33 | disposition home or self-care (01) ==
LOC: NCHCN 10:32
PROVIDERS: PCP Nurse Practitioner Family; Visit Provider Nurse Practitioner Family
DX: E03.9 Hypothyroidism, unspecified (principal)
CPT/HCPCS: 84443

== ENCOUNTER 2024-01-11 15:37 | Outpatient (CLI) | payer MEDICARE, SELFPAY ==
--- NOTE | 2024-01-11 14:00 | DI.RAD_ITS ---
Exam(s) XR ANKLE RT COMPLETE EXAM: XR ANKLE RT COMPLETE CLINICAL HISTORY: RIGHT ANKLE PAIN. TECHNIQUE: 2D digital imaging was performed of the right ankle. Four images were obtained. AP, lat eral and oblique views were obtained. COMPARISON: CR XR ANKLE RT COMPLETE from 03/19/2021 FINDINGS: BONES: No acute fracture is present. No bony destructive lesion is seen. JOINTS: The ankle mortise is normally aligned. SOFT TISSUE: Normal. IMPRESSION: Unremarkable radiographs of the right ankle. DATA REPOSITORY: RADIATION DOSE DELIVERED:
== END 2024-01-11 15:38 | disposition home or self-care (01) ==
LOC: DIORS 15:39
PROVIDERS: PCP Nurse Practitioner Family; Referring Provider Nurse Practitioner Family; Visit Provider Student in an Organized Health Care Education/Training Program
DX: M76.61 Achilles tendinitis, right leg
CPT/HCPCS: 99213; 73610

== ENCOUNTER 2024-01-25 13:54 | Outpatient (REF) | payer MEDICARE, SELFPAY ==
[2024-01-25 15:01] LABS: Calculated LDL 182 mg/dL (<100); Cholesterol 269 mg/dL (<200); HDL Cholesterol 63 mg/dL (40-60); Triglyceride 121 mg/dL (<150)
== END 2024-01-25 13:55 | disposition home or self-care (01) ==
LOC: NCHCN 13:54
PROVIDERS: PCP Nurse Practitioner Family; Visit Provider Nurse Practitioner Family
DX: E78.5 Hyperlipidemia, unspecified (principal)
CPT/HCPCS: 80061

== ENCOUNTER → 2024-01-27 00:26 | Outpatient (CLI) | payer MEDICARE, SELFPAY ==
--- NOTE | 2024-01-27 07:15 | DI.MRI_ITS ---
Exam(s) MR LOWER JOINT RT WO EXAM: MR LOWER JOINT RT WO CLINICAL HISTORY: RT ACHILLES TENDONITIS,M76.61 TECHNIQUE: Multiplanar multisequence MRI was performed without intravenous contrast. COMPARISON: CR XR ANKLE RT COMPLETE from 01/11/2024 FINDINGS: BONES/JOINTS: No fracture or contusion pattern. No bone lesions identified. There is mild hyperintens e signal seen in the medial aspect of the talar dome and the lateral adjacent aspect of the medial ma lleolus. These may represent contusions or mild arthrosis. No joint effusion is present. LIGAMENTS: The tibiofibular and calcaneofibular ligaments are intact. The talofibular ligaments are i ntact. The deltoid ligament is intact. The syndesmosis is unremarkable. Sinus tarsi is normal. MUSCULOTENDINOUS STRUCTURES: Achilles tendon: There is thickening of the Achilles tendon. There are foci of hyperintense signal s een within the tendon consistent with partial tears. Underlying tendinosis is seen. No evidence of a full-thickness tear is present. Plantar fascia: Unremarkable. Anterior Extensor tendons: Unremarkable. Posterior Tibialis: Unremarkable. Flexor Digitorum longus: Unremarkable. Flexor Hallucis longus: Unremarkable. Peroneus longus: Unremarkable. Peroneus brevis:Unremarkable. SOFT TISSUES: There is mild edema seen in the soft tissues around the Achilles tendon. OTHER FINDINGS: None. IMPRESSION: Thickening and intermediate signal seen in the Achilles tendon consistent with tendinitis. There is hyperintense signal seen within the tendon on the T2 weighted images consistent with partial intrasub stance tear. No evidence of a full-thickness tear is present. There is mild edema seen in the surro unding soft tissues. DATA REPOSITORY:
== END ==
PROVIDERS: PCP Nurse Practitioner Family; Visit Provider Student in an Organized Health Care Education/Training Program
DX: M76.61 Achilles tendinitis, right leg (principal)
CPT/HCPCS: 73721

== ENCOUNTER → 2024-02-01 09:25 | Outpatient (BNVA) | payer MEDICARE, SELFPAY | PROVIDERS: PCP Nurse Practitioner Family; Referring Provider Nurse Practitioner Family; Visit Provider Student in an Organized Health Care Education/Training Program | DX: M76.61 Achilles tendinitis, right leg (principal) | CPT/HCPCS: 99213 ==

== ENCOUNTER → 2024-03-28 08:01 | Outpatient (BNVA) | payer MEDICARE, SELFPAY | PROVIDERS: PCP Nurse Practitioner Family; Visit Provider Nurse Practitioner Adult Health | DX: G43.019 Migraine without aura, intractable, without status migrainosus (principal) | CPT/HCPCS: 99213 ==

== ENCOUNTER → 2024-05-03 08:29 | Outpatient (BNVA) | payer MEDICARE, SELFPAY | PROVIDERS: PCP Nurse Practitioner Family; Visit Provider Student in an Organized Health Care Education/Training Program | DX: M76.61 Achilles tendinitis, right leg (principal) | CPT/HCPCS: 99213 ==

== ENCOUNTER 2024-06-23 14:59 | Outpatient (CLI) | payer MEDICARE, SELFPAY ==
[2024-06-23 16:02] LABS: Ferritin 102 ng/mL (8-252)
== END 2024-06-23 15:00 | disposition home or self-care (01) ==
LOC: LBO 15:10
PROVIDERS: PCP Nurse Practitioner Family; Visit Provider Nurse Practitioner
DX: M54.9 Dorsalgia, unspecified (principal); G47.61 Periodic limb movement disorder
CPT/HCPCS: 36415; 82728

== ENCOUNTER 2024-08-11 09:14 | Outpatient (CLI) | payer MEDICARE, SELFPAY ==
--- NOTE | 2024-08-11 09:36 | DI.RAD_ITS ---
Exam(s) XR THUMB LT XR HAND LT COMPLETE EXAM: XR HAND LT COMPLETE and XR thumb LT CLINICAL HISTORY: Pain in Lt Fingers M79.645. TECHNIQUE: 2D digital imaging was performed of the left thumb and hand. Six views were obtained. A P, lateral and oblique views were obtained. COMPARISON: CR LEFT WRIST COMPLETE from 07/22/2016 FINDINGS: BONES: No acute fracture is present. No bony destructive lesion is seen. Since the prior examination, the patient has undergone a proximal row carpectomy. JOINTS: No dislocation present. The joint spaces are otherwise well maintained. No significant joint space narrowing, periarticular osteopenia, erosions are osteophytes are seen. SOFT TISSUE: Normal. IMPRESSION: Status post proximal row carpectomy. Otherwise unremarkable examination. DATA REPOSITORY: RADIATION DOSE DELIVERED:
== END 2024-08-11 09:34 ==
LOC: DI 09:18
PROVIDERS: PCP Nurse Practitioner Family; Visit Provider Nurse Practitioner Family
DX: M79.642 Pain in left hand (principal)
CPT/HCPCS: 73130; 73140

== ENCOUNTER → 2024-09-15 08:50 | Outpatient (BNVA) | payer MEDICARE, SELFPAY | PROVIDERS: PCP Nurse Practitioner Family; Referring Provider Nurse Practitioner Family | DX: M70.61 Trochanteric bursitis, right hip (principal) | CPT/HCPCS: 20610; 99214; J1010 ==

== ENCOUNTER → 2024-10-11 09:42 | Outpatient (BNVA) | payer MEDICARE, SELFPAY | PROVIDERS: PCP Nurse Practitioner Family; Referring Provider Nurse Practitioner Family; Visit Provider Student in an Organized Health Care Education/Training Program | DX: M70.61 Trochanteric bursitis, right hip (principal); M70.62 Trochanteric bursitis, left hip; M76.61 Achilles tendinitis, right leg | CPT/HCPCS: 99213 ==

== ENCOUNTER 2024-10-18 02:00 | Outpatient (CLI) | payer MEDICARE, SELFPAY ==
--- NOTE | 2024-10-18 07:30 | DI.MRI_ITS ---
Exam(s) MR LOWER JOINT RT WO EXAM: MR LOWER JOINT RT WO CLINICAL HISTORY: R HIP PAIN,TROCHANTERIC BURSITIS,M70.61 TECHNIQUE: Multiplanar multisequence MRI of Pelvis was performed COMPARISON: CR XR HIP PELVIS ADULT BL from 10/25/2019 FINDINGS: Bones: There is no fracture or contusion pattern. There is high signal in the posterior acetabulum. There is a small cyst adjacent to the posterior labrum. Joints: No significant joint effusionis present. There is a question of a focal tear in the posterio r labrum with an adjacent paralabral cyst. The SI joints and symphysis pubis are well maintained. Musculotendinous structures: Thickening edema in the gluteus minimus tendon. Findings consistent wit h tendinosis tendinitis versus partial tear. Gluteus medius tendon is unremarkable. There is minima l fluid at the trochanteric bursa. Intrapelvic structures demonstrate no significant abnormality. IMPRESSION: Tendinitis versus partial talar gluteus minimus tendon. Mild trochanteric bursitis. Posterior paralabral cyst question of focal tear at the posterior labrum. Adjacent marrow edema. DATA REPOSITORY:
== END 2024-10-18 02:20 ==
LOC: DI 02:00
PROVIDERS: PCP Nurse Practitioner Family; Visit Provider Student in an Organized Health Care Education/Training Program
DX: M70.61 Trochanteric bursitis, right hip (principal)
CPT/HCPCS: 73721

== ENCOUNTER → 2024-11-07 08:09 | Outpatient (BNVA) | payer MEDICARE, SELFPAY | PROVIDERS: PCP Nurse Practitioner Family; Referring Provider Nurse Practitioner Family; Visit Provider Student in an Organized Health Care Education/Training Program | DX: M70.61 Trochanteric bursitis, right hip (principal); M70.62 Trochanteric bursitis, left hip | CPT/HCPCS: 99214 ==

== ENCOUNTER 2024-12-28 12:53 | Day surgery (SDC) | payer MEDICARE, SELFPAY ==
--- NOTE | 2024-12-27 14:09 | W.PM.DSUDISC ---
Date of service: 12/28/24 Discharge Plan Disposition Patient Disposition: Home Condition: Stable Discharge Details Attending Provider: Jose Hernandez Primary Care Provider: Preeti Kidd Home Meds and New Rx's Prescriptions: New naproxen 250 mg tablet 250 - 500 mg PO BID PRN (Reason: Moderate pain) Qty: 40 0RF aspirin 81 mg tablet,delayed release (DR/EC) 81 mg PO DAILY 14 Days Qty: 14 0RF oxycodone 5 mg tablet 5 - 10 mg PO Q4H PRN (Reason: Moderate to severe pain) Qty: 18 0RF Continued omega-3 fatty acids [Fish Oil Concentrate] 1,000 mg capsule 2,000 mg PO DAILY magnesium oxide 400 mg magnesium capsule 400 mg PO BID melatonin 3 mg capsule 3 mg PO HS vitamin B complex Tablet 1 tab PO DAILY multivitamin [Daily Multi-Vitamin] Tablet 1 tab PO DAILY ketorolac 10 mg tablet See Rx Instructions .ROUTE .COMPLEX Qty: 30 3RF Dose Instruction: TAKE ONE TABLET BY MOUTH TWICE A DAY NEEDED FOR HEADACHE Rx Instructions: TAKE ONE TABLET BY MOUTH TWICE A DAY NEEDED FOR HEADACHE Ubrelvy 100 mg tablet 100 mg PO ONCE Qty: 14 3RF Rx Instructions: as a single dose; may repeat once in >=2 hours after first dose if needed colchicine 0.6 mg tablet 0.6 mg PO DAILY cholecalciferol (vitamin D3) 125 mcg (5,000 unit) capsule 125 mcg PO DAILY levothyroxine 125 mcg tablet 112 mcg PO DAILY omeprazole 20 mg capsule,delayed release(DR/EC) 20 mg PO DAILY tizanidine 4 mg capsule 4 mg PO QHS Qulipta 60 mg tablet 60 mg PO DAILY Qty: 90 3RF famotidine 40 mg tablet 40 mg PO BID Qty: 60 5RF Discharge Instructions Additional Instructions: Surgery: Right hip endoscopy with iliotibial band release and trochanteric bursectomy 12/28/24 Activity: Weightbearing as tolerated. May use crutches or walker as needed for a few days. Gradually advance to full range of motion and activity over the next few weeks. A physical therapy prescription will be sent to begin in about 3 weeks. Prescriptions: Aspirin 81 mg take 1 daily]to prevent a blood clot for 2 weeks Naproxen 250 mg take 1-2 every 12 hours with a meal as needed for moderate pain Oxycodone 5 mg take 1-2 every 4-6 hours as needed for severe pain You may use qwke-auz-hagnbip Tylenol (acetaminophen) as needed for mild pain. These pain medications may be taken all at once or in different combinations as needed. Also, recommend Colace (docusate) as a stool softener as surgery and pain medicine cause constipation. You may try emcc-vox-nlgiugn diphenhydramine (Benadryl) 25-50 mg nightly as a sleep aid Dressings: Leave dressing in place for 3 days. May then remove and leave open to air or cover incisions with Band-Aids. Leave the sticky Steri-Strips in place until they fall off or remove them after you shower. May shower after 5 days. Follow-up: 10-[address] Hernandez You may take off the leg compression stockings this evening at home. You may also leave them on a few days longer if you have a history of leg swelling or edema. Let us know right away if you develop any redness, drainage, fevers, chest pain, or trouble breathing. Do not drink alcohol or drive for at least 24 hours after anesthesia. Please call the office during business hours with any questions or concerns. Discharge Orders Discharge Orders: Discharge Order (Routine); Ordered 12/28/24 Ordered By: Celso Kruse DS: Diagnosis Discharge Diagnosis (1) Trochanteric bursitis, right hip: Status: Acute (2) Iliotibial band syndrome affecting right lower leg: Status: Acute
[2024-12-28] VITALS (17 sets, daily range): BP systolic 107–147; BP diastolic 35–94; PULSE 56–150; RESP 12–21; TEMP 36–36.4; O2SAT 97–100; BMI 29.7
--- NOTE | 2024-12-28 07:11 | ROE_ITS ---
Operative Note Operative Note PRE-OP DIAGNOSIS: Right hip 1. Iliotibial band syndrome 2. Trochanteric bursitis POST-OP DIAGNOSIS: same PROCEDURE: Right hip endoscopic 1. Iiliotibial band release, CPT# 96859 2. Trochanteric bursectomy, CPT# 49661 SURGEON: Jose Hernandez ANESTHESIA TYPE: Local By Surgeon and General LMA/ETT Refer to Anesthesia Record ESTIMATED BLOOD LOSS: 5 COMPLICATIONS: None Patient was transported to: PACU Patient's condition: stable Indications: Please see complete medical record for details. Findings: Slightly taut but not overly thickened iliotibial band. Abundant inflamed trochanteric bursitis. Intact gluteal tendons and musculature. Procedure Description: In the operating room, general anesthesia was induced. The patient was positioned supine on the [place] operating room table. All bony prominences were well-padded. Preoperative antibiotics were administered. The hip was prepped and draped in the usual sterile fashion. The correct patient, procedure, and side of the procedure were all verified prior to incision. 30 cc of 0.25% bupivacaine containing epinephrine was infiltrated about the subcutaneous tissues for the planned anterior lateral and distal anterolateral portals as well as deeply over the greater trochanter. A knife was used to incise the skin for the anterior lateral and distal anterolateral portals followed by blunt dissection subcutaneously. Under fluoroscopic guidance, a switching stick and arthroscope were inserted localizing the iliotibial band over the greater trochanter. Blunt dissection and the mechanical shaver were used to resect fat and overlying tissue about the center of the iliotibial band and carefully expose the anterior and posterior margins. Once there was adequate exposure of the IT band, the greater trochanter was again localized under fluoroscopic guidance with a spinal needle inserted through the skin down to bone. This central area was marked using the radiofrequency ablator. A Breathitt blade was brought in and used to create a 2 cm longitudinal incision in line with the IT band fibers as well as extending it in a cruciate fashion with 2 cm incisions anteriorly and posteriorly. The radiofrequency ablator was used to achieve hemostasis. The mechanical shaver was then used to debride the IT band released edges exposing the trochanteric bursa. The mechanical shaver was then used to excise the trochanteric bursa taking care to protect musculature about the margins of the greater trochanter as well as neurovascular structures especially posteriorly. There was excellent visualization of the vastus lateralis as well as gluteus medius confirming appropriate bursa excision. The hip was brought through range of motion including internal and external rotation and there was no impinging iliotibial band tissue or remaining pathologic bursa. The viewing and working portals were switched and appropriate IT band release, trochanteric bursa excision, and hemostasis confirmed. Suction was used to remove fluid from the endoscopic space. The portals were closed using 3-0 Monocryl in a buried fashion. Steri-Strips were applied over the incisions followed by Xeroform, 4 x 4 gauze, an ABD pad, and secured with tape. The patient awoke from anesthesia without complication and was transferred to the recovery room in a stable condition. Date of Procedure: 12/28/24
[2024-12-28] MEDS: Lactated Ringers 1,000 ML 30 ML IV (14:28)
[2024-12-28] MEDS: ceFAZolin 2 GM/50 ML BAG IVPB (14:55)
[2024-12-28] MEDS: TRANEXAMIC ACID/SOD. CHL. 1,000 MG/100 ML BAG 600 MG IVPB (15:05)
--- NOTE | 2024-12-28 15:22 | ANES.PREOP_ITS ---
General Info Date of Service Date Performed: 12/28/24 Height: 5 ft 5 in Weight: 80.9 kg Body Mass Index (BMI): 29.7 Surgical Procedure: Operation Date: 12/28/24 13:20 Proposed Procedure Side Surgeon p Endoscopic Iliotibial Band Release w/ Trochanteric Bursectomy, Possible Gluteal Tendon Repair Right Jose Hernandez MD Actual Procedure Side Surgeon p Endoscopic Iliotibial Band Release w/ Trochanteric Bursectomy, Possible Gluteal Tendon Repair Right Jose Hernandez MD Meds Allergies and Home Medications Allergies Allergy/AdvReac Type Severity Reaction Status Date / Time amitriptyline Allergy Mild Unknown Verified 12/28/24 13:06 Sulfa (Sulfonamide AdvReac Intermediate blood Verified 12/28/24 13:06 Antibiotics) pressure, oxygen levels down gabapentin AdvReac Mild constipatio Verified 12/28/24 13:06 n Home Medication ?Medication ?Instructions ?Recorded magnesium oxide 400 mg PO BID 03/17/22 melatonin 3 mg capsule 3 mg PO HS 03/17/22 omega-3 fatty acids 1,000 mg 2,000 mg PO DAILY 03/17/22 capsule (Fish Oil Concentrate) cholecalciferol (vitamin D3) 125 125 mcg PO DAILY 06/02/22 mcg (5,000 unit) capsule vitamin B complex 1 tab PO DAILY 12/24/22 famotidine 40 mg tablet 40 mg PO BID #60 tabs 03/24/23 atogepant 60 mg tablet (Qulipta) 60 mg PO DAILY #90 tabs 02/01/24 ketorolac 10 mg tablet See Rx Instructions .Route 03/28/24 .COMPLEX #30 tabs levothyroxine 125 mcg tablet 112 mcg PO DAILY 03/28/24 ubrogepant 100 mg tablet (Ubrelvy) 100 mg PO ONCE #14 tabs 03/28/24 omeprazole 20 mg capsule,delayed 20 mg PO DAILY 05/03/24 release tizanidine 4 mg capsule 4 mg PO QHS 05/03/24 multivitamin (Daily Multi-Vitamin 1 tab PO DAILY 07/25/24 tablet) colchicine 0.6 mg tablet 0.6 mg PO DAILY 08/23/24 aspirin 81 mg tablet,delayed 81 mg PO DAILY Prevent blood clot 12/28/24 release 14 days #14 tabs naproxen 250 mg tablet 250 - 500 mg (1 - 2 x 250 mg) PO 12/28/24 BID PRN Moderate pain #40 tabs oxycodone 5 mg tablet 5 - 10 mg (1 - 2 x 5 mg) PO Q4H 12/28/24 PRN Moderate to severe pain #18 tabs Current Visit Medications: Current Medications Generic Name Dose Route Start Last Admin Trade Name Freq PRN Reason Stop Dose Admin Ringer's Solution 1,000 mls @ 30 mls/hr 12/28/24 06:00 12/28/24 14:28 IV 12/28/24 23:59 30 mls/hr INFUSION JARVIS Administration Cefazolin Sodium/Dextrose 2 gm in 50 mls @ 100 mls/hr 12/28/24 06:00 Ancef Duplex IVPB 12/28/24 23:59 PREOP JARVIS Tranexamic Acid/Sodium Chloride 1,000 mg in 100 mls @ 600 mls/hr 12/28/24 06:00 IVPB 12/28/24 23:59 PREOP JARVIS IV Miscellaneous Supplies 1 each 12/28/24 06:00 Iv Access IV 12/28/24 23:59 DIRECTED JARVIS Oxycodone HCl 0 mg 12/28/24 07:29 Oxycodone 5 Mg Tab PO 01/27/25 07:28 Q3H PRN PRN Pain Sodium Chloride 0 ml 12/28/24 06:00 Normal Saline Flush 10 Ml Syr IV 12/28/24 23:59 PRN PRN Sodium Chloride 0 ml 12/28/24 06:00 Normal Saline 10 Ml Vial IJ 12/28/24 23:59 DIRECTED PRN Sterile Water 0 ml 12/28/24 06:00 Water,Injection,Sterile 10 Ml Vial IJ 12/28/24 23:59 DIRECTED PRN PFSH Active Problems Active Problems: Problem Status Onset Code Iliotibial band syndrome affecting right lower leg Acute M76.31 Trochanteric bursitis, right hip Acute M70.61 Right Achilles tendinitis Acute M76.61 Hand weakness Acute R29.898 Status migrainosus Acute G43.901 Gastroesophageal reflux disease Chronic K21.9 Normal colonoscopy Acute Caregiver burden Acute Z63.6 Chronic daily headache Acute R51.9 Sensorineural hearing loss (SNHL) of both ears Acute H90.3 Screening for colon cancer Acute Z12.11 Persistent headaches Acute R51.9 Chronic pain syndrome Chronic G89.4 Migraine headache without aura Acute G43.009 Medical History Medical History Right ankle sprain (03/19/21) Iliotibial band syndrome of left side Trochanteric bursitis of left hip Tubular adenoma of colon (02/09/17) Arthritis of right acromioclavicular joint Impingement syndrome of right shoulder Radioscaphoid impaction syndrome of right wrist SLAP lesion of right shoulder Tendinitis of long head of biceps brachii of right shoulder Bursitis of right shoulder Migraine aura, persistent, intractable Back pain Stress incontinence Scoliosis Constipation Hypothyroidism Thyroid nodule Medical History Comments:: pt reports vomiting during last surgery Surgical History Surgical History History of thumb surgery History of esophagogastroduodenoscopy (~03/2023) H/O shoulder surgery History of surgery SLAP right wrist H/O partial thyroidectomy History of surgery on wrist Slac surgery [facility] [place] 09/2021 wisdom teeth extraction excision ganglion cyst bunionectomy Rt. Foot back surgery Rods from T4-S1 for scoliosis Spinal Fusion LS Colonoscopy - MAC (02/09/17) 07/2022 Arthroplasty of knee left this is NOT a TKA per patient Tobacco Smoking/Tobacco Use Status: Never Passive smoking exposure: No Alcohol Alcohol Intake: never Substance Use Substance use: Never Substance use type: does not use Vital Signs and Lab Results Vital Signs Most Recent Vital Signs in EMR: Most Recent Vital Signs Temp Pulse Resp BP Pulse Ox 36.2 C L 71 16 138/84 100 12/28/24 13:09 12/28/24 13:09 12/28/24 13:09 12/28/24 13:09 12/28/24 13:09 Lab Results Blood Type / Crossmatch: No Data to Display Complete Blood Count: No Data to Display Complete Metabolic Panel: No Data to Display Liver Function Panel: No Data to Display Coagulation Panel: No Data to Display Cardiac Panel: No Data to Display Arterial Blood Gas: No Data to Display Venous Blood Gas: No Data to Display Pancreas Panel: No Data to Display Thyroid Panel: No Data to Display Infectious Disease: No Data to Display Blood Cultures: No Data to Display Toxicology Panel: No Data to Display Imaging and Studies Imaging and Studies Study information below may be from another EMR and interpreted by another provider. Please see original notes in EMR for more complete details. Stress Test Summary: 02/21: MET 7, 100% predicted HR, no ECG evidence of ischemia. Anesthesia Assessment and Plan Anesthesia History Personal History: No History of Anesthesia Complications Family History: No Family History of Anesthesia Complications Exercise Tolerance Exercise Tolerance: Metabolic Equivalents>4 Pertinent Negatives Pertinent Negatives: No Symptoms of GERD Cardiac & Pulmonary Exam Cardiac Exam: Normal S1/S2 Heart Sounds Pulmonary Exam: Clear Bilateral Breath Sounds Implantable Cardiac Device Does patient have a Pacemaker or an ICD?: No Airway Exam Known Difficult Airway: No Mallampati Class: 3 Mouth Opening: Narrow (< 3cm) Thyromental Distance: Greater than 3 cm Neck Range of Motion: Full ROM Neck Circumference: Normal Teeth Condition: Normal Dentition ASA Classification ASA Score: ASA 3 Emergency Case?: No NPO Status NPO Status: NPO Clears >2 hours, Solids >8 hours Anesthesia Plan Resuscitation Status: Full Code Anesthesia Technique: General Anesthesia Airway Planned: Endotracheal Tube Monitors Used: Standard Monitors and SedLine
[2024-12-28] MEDS: Bupivacaine 0.25% Pres-Free W/EPI 30 ML VIAL (15:40)
[2024-12-28] MEDS: EPINEPHrine 10 MG/10 ML ML (15:50)
--- NOTE | 2024-12-28 16:03 | DI.RAD_ITS ---
Exam(s) XR HIP RT IN OR EXAM: XR HIP RT IN OR CLINICAL HISTORY: Trochanteric bursitis, right hip. TECHNIQUE: 2D digital imaging was performed. COMPARISON: No exams were available for comparison FINDINGS: 3 views Fluoroscopy was provided during procedure on right hip. See procedure report for details. IMPRESSION: Total fluoroscopy time 5.8 seconds Radiation exposure index/cumulative dose:Kar= 1.03mGy DATA REPOSITORY: RADIATION DOSE DELIVERED:
[2024-12-28] MEDS: HYDROmorphone 2 MG/ML SYR IVP ×2 (16:22→16:32)
[2024-12-28] MEDS: Normal Saline 10 ML VIAL IJ (16:22)
--- NOTE | 2024-12-28 16:48 | W.ANESPOSTOP ---
Postoperative Evaluation Date, Time and Location Date Performed: 12/28/24 Time Performed: 16:48 Patient Location: PACU Vital Signs Most Recent Imported Vital Signs: Most Recent Vital Signs Temp Pulse Resp BP Pulse Ox 36.4 C L 64 17 137/43 L 98 12/28/24 16:26 12/28/24 16:40 12/28/24 16:40 12/28/24 16:36 12/28/24 16:40 Pain Score Most Recent Pain Score: Most Recent Pain Score Pain Level 4 12/28/24 16:37 Assessment Mental Status: Awake (Alert & Oriented to Patient Baseline) Airway and Respiratory Function: Patent airway with normal (patient baseline) respiratory exam Cardiovascular Function: Hemodynamically Stable Hydration Status: Adequately Hydrated Nausea & Vomiting: No Nausea or Vomiting Pain: Pain is tolerable per patient Peripheral Nerve Block: Patient did not receive a nerve block
== END 2024-12-28 18:08 | disposition home or self-care (01) ==
PROVIDERS: PCP Nurse Practitioner Family; Visit Provider Student in an Organized Health Care Education/Training Program
PROC: (CPT 29863; principal; 2024-12-28 13:00)
DX: M70.61 Trochanteric bursitis, right hip (principal); M76.31 Iliotibial band syndrome, right leg
CPT/HCPCS: 27305; 27062; 73501; J0131; J0690; J1100; J1171; J1885; J2003; J2405; J2704; J3010

== ENCOUNTER → 2025-01-09 08:37 | Outpatient (BNVA) | payer MEDICARE, SELFPAY | PROVIDERS: PCP Nurse Practitioner Family; Visit Provider Student in an Organized Health Care Education/Training Program | DX: Z47.89 Encounter for other orthopedic aftercare (principal); M70.61 Trochanteric bursitis, right hip | CPT/HCPCS: 99024 ==

== ENCOUNTER 2025-02-15 12:20 | Outpatient (REF) | payer MEDICARE, SELFPAY ==
[2025-02-15 16:26] LABS: TSH (W/Ref FT4) 0.21 uIU/mL (0.36-3.74)
== END 2025-02-15 12:21 | disposition home or self-care (01) ==
LOC: NCHCN 12:20
PROVIDERS: PCP Nurse Practitioner Family; Visit Provider Nurse Practitioner Family
DX: E03.9 Hypothyroidism, unspecified (principal)
CPT/HCPCS: 84439; 84443

== ENCOUNTER → 2025-03-27 08:28 | Outpatient (BNVA) | payer MEDICARE, SELFPAY | PROVIDERS: PCP Nurse Practitioner Family; Visit Provider Student in an Organized Health Care Education/Training Program | DX: Z47.89 Encounter for other orthopedic aftercare (principal); M70.61 Trochanteric bursitis, right hip | CPT/HCPCS: 99024 ==

== ENCOUNTER 2025-04-04 12:00 | Outpatient (REF) | payer MEDICARE, SELFPAY ==
[2025-04-04 14:58] LABS: TSH (W/Ref FT4) 1.55 uIU/mL (0.36-3.74)
== END 2025-04-04 12:01 | disposition home or self-care (01) ==
LOC: NCHCN 12:00
PROVIDERS: PCP Nurse Practitioner Family; Visit Provider Nurse Practitioner Family
DX: E03.9 Hypothyroidism, unspecified (principal)
CPT/HCPCS: 84443